=== PATIENT | female | born 1995 | race Two or more races ===

== ENCOUNTER 2024-08-03 11:50 | Emergency (ER) | payer BC, MEDICAID, SELFPAY ==
[2024-08-03 11:58] VITALS: BP 111/71; PULSE 83; RESP 18; TEMP 36.8; O2SAT 98; BMI 33.8
--- NOTE | 2024-08-03 12:04 | XR_ITS ---
Examination: Complete OB ultrasound, less than 14 weeks, transabdominal Date and time of exam: August 03, 2024 1233 hours INDICATIONS: Pelvic pain and vaginal bleeding beginning 2 days ago Technique: Obstetrical ultrasound images less than 14 weeks performed via transabdominal imaging Findings: A normal shaped single intrauterine gestation is present in the uterus. pole 6.1 cm corresponds to 12 weeks 4 days gestational age Cardiac motion 167 BPM Adjacent subchorionic hemorrhage 5.2 x 1.7 x 1.8 cm Ultrasonographic survey of visible structures unremarkable. Amniotic fluid volume appears appropriate for this estimated gestational age. Right ovary 3.3 cm arterial flow Left ovary 3.5 cm arterial flow IMPRESSION: Viable intrauterine gestation 12 weeks 4 days Recommend short-term follow-up transvaginal study given the patient's large subchorionic hemorrhage
--- NOTE | 2024-08-03 12:04 | PD.EDRME ---
Rapid Medical Screening Exam RME Arrival date/time: 08/03/24 11:50 29-year-old female presents emergency department today for complaints of pelvic cramping generalized body aches patient reports being approximate little weeks Chief Complaint: OB/Uterine Contractions Vital signs: Vital Signs Temperature 98.2 F 08/03/24 11:58 Pulse Rate 83 08/03/24 11:58 Respiratory Rate 18 08/03/24 11:58 Blood Pressure 111/71 08/03/24 11:58 Pulse Oximetry (%) 98 08/03/24 11:58 Oxygen Delivery Method Room Air 08/03/24 11:58
[2024-08-03 12:22] LABS: Collection Type, Urine Clean Catch
[2024-08-03 12:34] LABS: Bilirubin,Urine Negative (Negative); Blood,Urine Negative (Negative); Clarity,Urine Clear (Clear/Hazy); Color,Urine Lt-Yellow (Lt Yel-Yel); Glucose, Urine Negative (Negative); Ketones,Urine Negative (Negative); Leukocyte Esterase,Urine Negative (Negative); Nitrite,Urine Negative (Negative); Protein,Urine Negative (Neg - Trace); RBC,Urine 5 /hpf (0-3); Specific Gravity,Urine 1.015 (1.001-1.035); Squamous Epithelial Cell,Urine 1 /hpf (0-5); Urobilinogen,Urine Negative mg/dL (0.0-1.0); WBC,Urine 1 /hpf (0-5)
[2024-08-03 12:49] LABS: Basophils # (Auto) 0.1 Thou/mm3 (0.0-0.2); Basophils % (Auto) 1 % (0-2.5); Eosinophils # (Auto) 0.1 Thou/mm3 (0.0-0.5); Eosinophils % (Auto) 1 % (0-10); Hemoglobin 12.8 g/dL (12.0-16.0); Immature Granulocytes % (Auto) 0 % (0-0); Immature Granulocytes Auto 0.05 Thou/mm3 (0.00-0.00); Lymphocytes # (Auto) 1.6 Thou/mm3 (1.0-4.8); Lymphocytes % (Auto) 12 % (10-50); Mean Corpuscular HGB Conc 34.6 g/dl (31.0-37.0); Mean Corpuscular Hemoglobin 29.6 pg (25.0-35.0); Mean Corpuscular Volume 86 fL (80-100); Monocytes # (Auto) 0.8 Thou/mm3 (0.0-0.8); Monocytes % (Auto) 6 % (0-12); Neutrophils # (Auto) 10.7 Thou/mm3 (1.8-7.7); Neutrophils % (Auto) 81 % (37-80); Nucleated Red Blood Cell % 0 /100 WBC (0); Platelet Count 290 Thou/mm3 (140-440); RDW Standard Deviation 42.6 fL (36.4-46.3); Red Blood Count 4.32 Miln/mm3 (4.00-5.20); White Blood Count 13.2 Thou/mm3 (3.6-11.0)
[2024-08-03 13:23] LABS: Alanine Aminotransferase 9 U/L (10-49); Albumin, Serum 4.2 gm/dL (3.5-5.0); Albumin/Globulin Ratio 1.4 (1.2-2.2); Alkaline Phosphatase 74 U/L (46-116); Anion Gap 8 (7-16); Aspartate Amino Transferase 12 U/L (0-34); BUN/Creatinine Ratio 14 Ratio (12-20); Bilirubin,Total 0.5 mg/dL (0.3-1.2); Blood Urea Nitrogen 7 mg/dL (9-23); Calcium 9.3 mg/dL (8.3-10.6); Calcium (Corrected) 9.3 mg/dL (8.5-10.1); Carbon Dioxide 25.5 mMol/L (20.0-31.0); Chloride 104 mMol/L (98-107); Creatinine (Component) 0.5 mg/dL (0.6-1.3); Estimated Creatinine Clearance 166.8 mL/min (>60); Globulin 3.1 gm/dL (2.3-3.5); Glucose 84 mg/dL (74-106); Osmolality,Calculated 270 (275-295); Potassium 3.6 mMol/L (3.4-5.1); Sodium 137 mMol/L (136-145); Total Protein 7.3 gm/dL (5.7-8.2); eGFR > 60 See Note
[2024-08-03 13:59] LABS: Beta HCG,Quantitative 127086 mIU/mL (<5.0)
[2024-08-03 16:47] VITALS: BP 119/79; PULSE 89; RESP 16; TEMP 36.9; O2SAT 98
--- NOTE | 2024-08-03 16:58 | EDNOTE_ITS ---
ED OB Contraction Preg RMI/HPI General Chief complaint: OB/Uterine Contractions Stated complaint: SPOTTING, CRAMPING, NAUSEA @ 11WKS; GRAV5 PARA2 Arrival date/time: 08/03/24 11:50 RME / HPI RME / HPI Narrative: 08/03/24 11:50 29-year-old female presents emergency department today for complaints of pelvic cramping generalized body aches patient reports being approximate little weeks DR. MADSEN MAIN ED EVALUATION: 29 year old female who is currently 11 weeks gestational age, A2 presents to the ED for evaluation of vaginal spotting and abdominal cramping pain today. States pain is located most across lower abdomen that radiates around to back. Spotting noted to be very light. Additionally complains of nausea, vomiting, and weight loss x 1 month; states 1 month ago she weighed 88kg and yesterday weighed 84kg. States her OBGYN prescribed Zofran which she has yet to take today. States she was last able to tolerate some fluids yesterday. She attempted to drink this am which she did not tolerate. Related Data Previous Rx's ?Medication ?Instructions ?Recorded cyclobenzaprine 10 mg tablet 10 mg PO TID PRN muscle s pasm #20 09/13/21 tabs tramadol 37.5 mg-acetaminophen 325 1 tab PO TID PRN pa in #30 tabs 09/13/21 mg tablet (Ultracet) loperamide 2 mg tablet 2 mg PO Q6H PRN loose stool #14 10/29/22 tabs Allergies Allergy/AdvReac Type Severity Reaction Status Date / Time No Known Allergies Allergy Verified 08/03/24 11:53 Review of Systems Review of Systems Narrative Review of Systems: Constitutional: DENIES; Fevers Eyes: DENIES; Loss of vision Head/Ear/Nose: DENIES; Loss of hearing Throat: DENIES; Dysphagia Cardiovascular: DENIES; Chest pain, dyspnea or syncope Respiratory: DENIES; Shortness of breath Gastrointestinal: SEE HPI +abd cramping, nausea, vomiting. DENIES; Rectal bleeding or melena. Genitourinary: DENIES; Dysuria (painful or difficult urination) Musculoskeletal: DENIES; Arthralgia (pain in a joint),; Skin: DENIES; Rash Neurological: DENIES; Loss of function or movement Psychiatric: DENIES; recent major life stressor, emotional problem, illicit drug use or abuse Allergic/Immunologic: DENIES; Urticaria (hives) Past Medical History Past Medical History NEUROLOGIC: Negative Neurological Disorders or Seizures CARDIAC: Positive Cardiac Disorders and Hypertension; Negative Congestive Heart Failure RESPIRATORY: Negative Chronic Obstructive Pulmonary Disease (COPD) GASTROINTESTINAL: Negative Gastrointestinal Disorders, Hepatitis or Colorectal Cancer GENITOURINARY: Negative Genitourinary Disorders, Renal Disease or Prostate Cancer REPRODUCTIVE: Negative Breast Cancer, Endometriosis, Pelvic Inflammatory Disease, Previous Pregnancies, Testicular Cancer or Uterine Prolapse MUSCULOSKELETAL: Negative Musculoskeletal Disorders or Bone Cancer ENDOCRINE: Negative Endocrine Disorders, Diabetes Mellitus Type 1 or Diabetes Mellitus Type 2 HEMATOLOGIC: Negative Blood Disorders OTHER HISTORY: Positive Hospitalization; Negative Autoimmune Disease, Down Syndrome, Developmental Delay, Shingles, Falls, Blood Transfusions, Blood Transfusion Reaction, Anesthesia Reactions, MRSA, Vancomycin-Resistant Enterococci, Human Immunodeficiency Virus (HIV), Chicken Pox, Measles, Mumps, Rubella ([place] Measles), Pertussis, Clostridium Difficile, Breast Cancer, Cervical Cancer, Colorectal Cancer, Lung Cancer, Ovarian Cancer, Prostate Cancer or Testicular Cancer Family History FAMILY HISTORY: Positive Family Cardiac Disorders; Negative Family Psychiatric Problems, Family Respiratory Disorders, Family Gastrointestinal Problems, Family Cancer, Family Surgery or Family Anesthesia Reaction Surgical History SURGICAL: Positive Section Social History SMOKING STATUS: Never smoker ED Exam Narrative Physical exam: Physical Exam: General: The vital signs were reviewed. The patient is non-toxic, in no apparent distress and appears healthy with a patent airway, no respiratory distress and has no apparent circulatory problems. Head & Scalp: Normocephalic, atraumatic. Face: Appears normal and is without lesions, deformity. Ears: Left external pinna appears normal. Right external pinna appears normal. Eyes: The sclera is anicteric. No obvious photophobia. The Left and Right Orbit/Lid/Conjunctiva appears normal without swelling, discoloration or injection. Nose: The nose is without deformity, discharge or tenderness; Throat: Appears normal. The mucous membranes are pink and moist without exudates, redness or mass seen. The tongue appears normal. Neck: The neck is supple and no apparent mass or adenopathy. Chest: The chest wall is normal in size and symmetry and has no chest wall tenderness or crepitus. The patient displays normal ventilator effort without retractions, accessory muscle use and has adequate air movement bilaterally with no wheezes and no rales. Cardiovascular: Regular rate and rhythm; No murmurs, rubs, or gallops; Gastrointestinal: The abdomen appears normal. No obvious hernias or mass. The abdomen is soft and benign, non-distended, with no pain, no guarding and no rebound tenderness. Bowel sounds are present and normal sounding. No CVA tenderness. Genitourinary: Back/Spine: Extremities/Musculoskeletal/lymphatic: The bilateral upper and lower extremities are warm. There is no evidence of arterial insufficiency. There is no evidence of venous insufficiency/edema. The patient spontaneously moves bilateral upper and lower extremities with no pain and no limitation of movement. There is no apparent, injury or trauma. Skin: The skin is warm, dry and intact. No rashes. No petechia. No purpura. No abnormal bruising. The color is appropriate with no cyanosis. Mental status/Psychiatric: Mental status is appropriate for age. The patient has no apparent delusions, visual hallucinations, no apparent audible hallucinations. The patient has no apparent suicidal thoughts/ideation and no apparent homicidal thoughts/ideation. Neurological: The patient is awake, alert, interactive, cordial, cooperative and is or iented to name and situation. The patient follows commands and answers historical question with no impairment. There is no visual disturbance apparent. The pupils are equal and reactive bilaterally with normal eye movements and no diplopia The bilateral upper and lower extremities have normal strength, normal range of motion and normal functioning. Course Quality Measures none Orders Category Date Time Status Miscellaneous Nursing Order NOW Care 08/03/24 17:04 Active US OB <= 14 weeks fetus Stat Exams 08/03/24 12:04 Completed ABO/RH Type Stat Lab 08/03/24 12:15 Completed Beta HCG,Quantitative Stat Lab 08/03/24 12:15 Completed CBC Stat Lab 08/03/24 12:15 Completed Comprehensive Metabolic Panel Stat Lab 08/03/24 12:15 Completed UA [Urinalysis] Stat Lab 08/03/24 12:05 Completed Urine Culture Stat Lab 08/03/24 12:05 Received Ondansetron Inj [Zofran Inj] Med 08/03/24 17:04 Discontinued 4 mg IV X1 ONE Sodium Chloride 0.9% 1000 ml [Ns] 2,000 ml Med 08/03/24 17:04 Active IV 999 mls/hr Vital Signs Vital signs: Vital Signs Temperature 98.2 F 08/03/24 11:58 Pulse Rate 83 04/23/25 11:58 Respiratory Rate 18 08/03/24 11:58 Blood Pressure 111/71 08/03/24 11:58 Pulse Oximetry (%) 98 08/03/24 11:58 Oxygen Delivery Method Room Air 08/03/24 11:58 Pulse ox is 98% on room air which is adequate. Vaginal Bleeding MDM Narrative MDM Narrative: Patient 29-year-old lady who is SAB 2 comes in with some vaginal spotting and had an ultrasound today which was negative with a live IUP at 12 weeks 5 days but has intractable nausea and vomiting for 4 weeks and has been unable Olding down for the last week states she is lost at least 4 kg of weight in the past month. This morning she vomited and that the last time she tried to drink as she has perpetual nausea. Unfortunate there is no rooms in the ER and she waited in the waiting room for a long time. At this time regular some Zofran will come and give her some IV fluids and oral fluids and see if we can get her comfortable Her lab studies reveal no obvious significant dehydration with a hemoglobin of 12.8 hematocrit 37.0 platelet count of 290,000 electrolytes are normal BUN 7 creatinine 0.5. BUN/creatinine ratio is 14. Urinalysis reveals specific already of 1015 otherwise no infection seen. ultrasound was done as mentioned above Will reevaluate this patient after 2 L of fluid and some Zofran. No doubt patient has hyperemesis gravidarum. She [facility] to the [facility] sees Dr. De Los Santos for her care. At 1800 [address] care goes to Dr. Gibson will be assuming care for hydration and reevaluation. Patient has had intractable nausea and vomiting with 4 kg weight loss in the past month and unable to hold anything down today. Although her labs look reasonable or waiting to see if we clinically get improvement. Patient data External records reviewed:: [facility] previous records (I reviewed ED visit on 01/26/2024 ) Clinical information provided by:: patient Social determinants that could affect healthcare access:: none Patient has the following chronic illnesses:: Currently , 11 weeks gestational age. A2 How is presenting disease/condition affected by chronic disease/condition?: exacerbated by Evaluation data The following diagnostics were reviewed and interpreted by me:: lab results and radiology exam(s) Lab and/or radiology exams considered but not ordered:: None Interpretation Summary: Ordering Physician: Nicholas PULLIAM)Garrett NP Date of Service: 08/03/24 Procedure(s): US OB <= 14 weeks fetus Accession Number(s): [id number] cc: Nicholas PULLIAM)Garrett NP; Roderick Winters MD; NO PRIMARY/FAMILY,PHYSICIAN~ Examination: Complete OB ultrasound, less than 14 weeks, transabdominal Date and time of exam: August 03, 2024 1233 hours INDICATIONS: Pelvic pain and vaginal bleeding beginning 2 days ago Technique: Obstetrical ultrasound images less than 14 weeks performed via transabdominal imaging Findings: A normal shaped single intrauterine gestation is present in the uterus. pole 6.1 cm corresponds to 12 weeks 4 days gestational age Cardiac motion 167 BPM Adjacent subchorionic hemorrhage 5.2 x 1.7 x 1.8 cm Ultrasonographic survey of visible structures unremarkable. Amniotic fluid volume appears appropriate for this estimated gestational age. Right ovary 3.3 cm arterial flow Left ovary 3.5 cm arterial flow IMPRESSION: Viable intrauterine gestation 12 weeks 4 days Recommend short-term follow-up transvaginal study given the patient's large subchorionic hemorrhage Dictated By: Roderick Winters MD Signed By: <Electronically signed by Roderick Winters MD in OV> 08/03/24 1328 Medications / Prescriptions Medications or Prescriptions considered but not ordered:: None Medication administrations:: Medication Administration History Sodium Chloride (Ns) 2,000 mls @ 999 mls/hr IV .Q2H1M ONE Stop: 08/03/24 19:04 Last Admin: 08/03/24 17:20 Dose: 999 mls/hr Documented By: DO Discontinued Medications Ondansetron HCl (Ondansetron Inj 2 Mg/Ml Inj 2 Ml) 4 mg IV X1 ONE; Protocol Stop: 08/03/24 17:05 Last Admin: 08/03/24 17:21 Dose: 4 mg Documented By: DO See above Consultations Consultation(s) initiated? (list below): No Diagnosis Vaginal Bleeding Differential Diagnosis: threatened , vaginal bleeding and other (nausea and vomiting in ) Most likely diagnosis given after review of the tests above:: Hyperemesis gravidarum Acute dehydration Admission Indicated Admission indicated?: not indicated Admission Request Was there a request for admission?: No Disposition Plan Disposition Plan: Discharge Discharge Attestation Discharge Attestation: The patient and all family members were given an opportunity to ask questions and understood the discharge instructions. Discharge instructions specifically effects, indications for sooner follow up or return to the emergency department, and the expected course of current diagnosis. Patient condition: Stable Discharge Plan Prescriptions/Referrals Prescriptions/Med Rec: No Action tramadol-acetaminophen [Ultracet] 37.5-325 mg tablet 1 tab PO TID PRN (Reason: pain) Qty: 30 0RF cyclobenzaprine 10 mg tablet 10 mg PO TID PRN (Reason: muscle spasm) Qty: 20 0RF loperamide 2 mg tablet 2 mg PO Q6H PRN (Reason: loose stool) Qty: 14 0RF Referrals: No Primary/Family,Physician [Primary Care Provider] - In 1 week Problem List Clinical Impression: Hyperemesis gravidarum, Acute dehydration Patient/Caregiver Discharge Instructions Print Language: Mongolian
[2024-08-03] MEDS: SODIUM CHLORIDE 0.9% 1000 ML 2,000 ML 999 ML IV (17:20)
[2024-08-03] MEDS: ONDANSETRON INJ 2 MG/ML INJ 2 ML 4 MG IV (17:21)
--- NOTE | 2024-08-03 18:45 | PD.EDADDENDU ---
Emergency Room Addendum Addendum Narrative: 1800: Care assumed from Dr. Seaman, the previous shift emergency physician. Past medical, surgical, social and family history reviewed. Vitals and home medications reviewed. Results and treatment plan discussed. I will assume the care of the patient at this time and will follow the patient, pending hydration and re-evaluation. Please refer to the emergency department record for history and examination from initial visit. 1855: 29yo female who is ~11 weeks gestation presents to the ED for complaints of abdominal cramping since yesterday and vaginal spotting x today. Patient states she's has persistent N/V for the last one month, reporting she saw her PCP and was given antiemetics that did not alleviate her symptoms. Patient reports associated lightheadedness and generalized weakness. Patient is currently receiving 2L NS IVF and is pending re-evaluation. 1933: IVF completed. I re-evaluated the patient. She states she feels significantly better compared to when she initially came in and is now asymptomatic. Patient was able to tolerate 8 oz fluids here in the ED. Patient is stable to be discharged home.
== END 2024-08-03 20:40 | disposition home or self-care (01) ==
PROVIDERS: Nurse Practitioner Primary Care; Emergency Provider Emergency Medicine
DX: O20.8 Other hemorrhage in early pregnancy (principal); O21.0 Mild hyperemesis gravidarum; O99.281 Endocrine, nutritional and metabolic diseases complicating pregnancy, first trimester; E86.0 Dehydration; Z3A.12 12 weeks gestation of pregnancy
CPT/HCPCS: 36415; 76801; 80053; 81001; 84702; 85025; 86900; 86901; 87086; 96361; 96374; 99284; J2405; J7030

== ENCOUNTER → 2024-10-28 | Outpatient (CLI) | payer MEDICAID, SELFPAY ==
--- NOTE | 2024-10-28 11:30 | XR_ITS ---
Examination: Complete OB ultrasound greater than 14 weeks Date and time of exam: October 28, 2024 1127 hours INDICATIONS: Physician order: Encounter for supervision of normal Findings: Viable intrauterine single fetus with single amniotic sac presentation transverse head right lower quadrant Cardiac motion 166 BPM Placenta fundal posterior grade 1 Umbilical cord insertion seen Adequate amniotic fluid volume Cervix 5.4 cm Right ovary 3.0 cm arterial flow Left ovary 2.7 cm arterial flow. Composite estimated gestational age based on BPD, head circumference, abdominal circumference, femur length is 23 weeks 4 days Estimated weight 609 g. Survey of intracranial anatomy, spinal anatomy, abdominal anatomy, four-chamber heart performed with no abnormalities identified. Impression: Viable intrauterine gestation transverse presentation.
== END | disposition home or self-care (01) ==
LOC: CDIM 11:09
PROVIDERS: Referring Provider Obstetrics & Gynecology; Visit Provider Obstetrics & Gynecology
DX: O32.2XX0 Maternal care for transverse and oblique lie, not applicable or unspecified (principal); Z3A.23 23 weeks gestation of pregnancy
CPT/HCPCS: 76805

== ENCOUNTER 2024-12-06 14:46 | Outpatient (CLI) | payer MEDICAID, SELFPAY ==
[2024-12-06] VITALS (16 sets, daily range): BP systolic 108–115; BP diastolic 56–76; PULSE 64–87; RESP 18–99; TEMP 36.8–37.2; O2SAT 97–100; BMI 36.3; BMI 36.7
--- NOTE | 2024-12-06 15:56 | XR_ITS ---
Examination: Complete OB ultrasound greater than 14 weeks Date and time of exam: December 06, 2024, 1604 hours INDICATIONS: Pelvic pain dizziness and vomiting onset today. Findings: Viable intrauterine single fetus with single amniotic sac presentation breech Cardiac motion 160 BPM Placenta posterior grade 2 Umbilical cord insertion seen Amniotic fluid index 10.4 cm spine maternal left Cervix 4.5 cm. Composite estimated gestational age based on BPD, head circumference, abdominal circumference, femur length is 29 weeks 0 days Estimated weight 1321.6 g. Survey of intracranial anatomy, spinal anatomy, abdominal anatomy, four-chamber heart performed with no abnormalities identified. Impression: Viable intrauterine gestation breech presentation..
[2024-12-06 17:14] LABS: Basophils # (Auto) 0.1 Thou/mm3 (0.0-0.2); Basophils % (Auto) 0 % (0-2.5); Eosinophils # (Auto) 0.1 Thou/mm3 (0.0-0.5); Eosinophils % (Auto) 1 % (0-10); Hematocrit 30.1 % (36.0-46.0); Hemoglobin 9.7 g/dL (12.0-16.0); Immature Granulocytes Auto 0.11 Thou/mm3 (0.00-0.00); Lymphocytes # (Auto) 2.0 Thou/mm3 (1.0-4.8); Lymphocytes % (Auto) 15 % (10-50); Mean Corpuscular HGB Conc 32.2 g/dl (31.0-37.0); Mean Corpuscular Hemoglobin 27.0 pg (25.0-35.0); Mean Corpuscular Volume 84 fL (80-100); Monocytes # (Auto) 1.0 Thou/mm3 (0.0-0.8); Monocytes % (Auto) 7 % (0-12); Neutrophils # (Auto) 10.6 Thou/mm3 (1.8-7.7); Neutrophils % (Auto) 76 % (37-80); Nucleated Red Blood Cell # 0.00 Thou/mm3 (0.00-0.00); Nucleated Red Blood Cell % 0 /100 WBC (0); Platelet Count 284 Thou/mm3 (140-440); RDW Standard Deviation 40.6 fL (36.4-46.3); Red Blood Count 3.59 Miln/mm3 (4.00-5.20); White Blood Count 13.8 Thou/mm3 (3.6-11.0)
[2024-12-06 18:01] LABS: Alanine Aminotransferase < 7 U/L (10-49); Albumin, Serum 3.8 gm/dL (3.5-5.0); Albumin/Globulin Ratio 1.4 (1.2-2.2); Alkaline Phosphatase 88 U/L (46-116); Anion Gap 10 (7-16); Aspartate Amino Transferase 11 U/L (0-34); BUN/Creatinine Ratio 12 Ratio (12-20); Bilirubin,Total 0.4 mg/dL (0.3-1.2); Blood Urea Nitrogen 6 mg/dL (9-23); Calcium 9.2 mg/dL (8.3-10.6); Calcium (Corrected) 9.4 mg/dL (8.5-10.1); Carbon Dioxide 23.7 mMol/L (20.0-31.0); Chloride 105 mMol/L (98-107); Creatinine (Component) 0.5 mg/dL (0.6-1.3); Estimated Creatinine Clearance 173.3 mL/min (>60); Globulin 2.7 gm/dL (2.3-3.5); Glucose 76 mg/dL (74-106); Osmolality,Calculated 274 (275-295); Potassium 3.7 mMol/L (3.4-5.1); Sodium 139 mMol/L (136-145); Total Protein 6.5 gm/dL (5.7-8.2); eGFR > 60 See Note
[2024-12-06] MEDS: SODIUM CHLORIDE 0.9% 1000 ML 1,000 ML 999 ML IV (18:25)
[2024-12-06 18:31] LABS: Beta HCG,Quantitative 43347 mIU/mL (<5.0)
[2024-12-06 19:22] LABS: Collection Type, Urine Voided
[2024-12-06 19:28] LABS: Bacteria,Urine Rare; Bilirubin,Urine Negative (Negative); Blood,Urine Negative (Negative); Color,Urine Yellow (Lt Yel-Yel); Glucose, Urine Negative (Negative); Ketones,Urine Trace (Negative); Leukocyte Esterase,Urine Negative (Negative); Nitrite,Urine Negative (Negative); PH,Urine 7.0 (5.0-7.0); Specific Gravity,Urine 1.021 (1.001-1.035); Urobilinogen,Urine Negative mg/dL (0.0-1.0)
--- NOTE | 2024-12-06 20:00 | EDNOTE_ITS ---
ED OB Contraction Preg RMI/HPI General Chief complaint: Nausea/Vomiting/Diarrhea Stated complaint: N/V, DIZZY, BACK PAIN, PREG 30WKS; SENT BY OB Time Seen by Provider: 12/06/24 15:21 Arrival date/time: 12/06/24 14:46 This is a case of 29-year-old female with no medical history came in in the emergency room due to nausea vomiting since yesterday 4 times today nonprojectile associated with lightheadedness and lower back pain patient is 30 weeks 5 para 2 2 miscarriage LMP is May 11, 2024 patient seen regularly by the OB patient is fine until 2 days prior to arrival in the emergency room patient started the above symptoms patient denies any abdominal pain patient states that she felt that the baby is moving and denies any contraction denies any vaginal bleeding vaginal spotting or vaginal discharge Limitations: no limitations Related Data Previous Rx's ?Medication ?Instructions ?Recorded cyclobenzaprine 10 mg tablet 10 mg PO TID PRN muscle s pasm #20 09/13/21 tabs tramadol 37.5 mg-acetaminophen 325 1 tab PO TID PRN pa in #30 tabs 09/13/21 mg tablet (Ultracet) loperamide 2 mg tablet 2 mg PO Q6H PRN loose stool #14 10/29/22 tabs Allergies Allergy/AdvReac Type Severity Reaction Status Date / Time No Known Allergies Allergy Verified 12/06/24 14:49 Review of Systems Review of Systems Systems Reviewed: All systems reviewed, normal except as documented Constitutional Constitutional: Reports system reviewed and no additional complaints, except as documented, Reports as per HPI, Denies chills and Denies fever(s) Cardiovascular Cardiovascular: Reports system reviewed and no additional complaints, except as documented, Reports as per HPI, Denies chest pain and Denies dyspnea Respiratory Respiratory: Reports system reviewed and no additional complaints, except as documented, Reports as per HPI, Denies chest congestion, Denies cough and Denies dyspnea Gastrointestinal Gastrointestinal: Reports system reviewed and no additional complaints, except as documented, Reports as per HPI, Denies abdominal pain, Denies diarrhea, Denies dyspepsia, Denies hematemesis, Denies melena, Reports nausea and Reports vomiting Genitourinary Genitourinary: Reports system reviewed and no additional complaints, except as d ocumented, Reports as per HPI, Denies abnormal vaginal bleeding and Denies dysuria Neurologic Neurologic: Reports system reviewed and no additional complaints, except as documented and Reports as per HPI Past Medical History Past Medical History NEUROLOGIC: Negative Neurological Disorders or Seizures CARDIAC: Positive Cardiac Disorders and Hypertension; Negative Congestive Heart Failure RESPIRATORY: Negative Chronic Obstructive Pulmonary Disease (COPD) GASTROINTESTINAL: Negative Gastrointestinal Disorders, Hepatitis or Colorectal Cancer GENITOURINARY: Negative Genitourinary Disorders, Renal Disease or Prostate Cancer REPRODUCTIVE: Negative Breast Cancer, Endometriosis, Pelvic Inflammatory D isease, Previous Pregnancies, Testicular Cancer or Uterine Prolapse MUSCULOSKELETAL: Negative Musculoskeletal Disorders or Bone Cancer ENDOCRINE: Negative Endocrine Disorders, Diabetes Mellitus Type 1 or Diabetes Mellitus Type 2 HEMATOLOGIC: Negative Blood Disorders OTHER HISTORY: Positive Hospitalization; Negative Autoimmune Disease, Down Syndrome, Developmental Delay, Shingles, Falls, Blood Transfusions, Blood Transfusion Reaction, Anesthesia Reactions, MRSA, Vancomycin-Resistant Enterococci, Human Immunodeficiency Virus (HIV), Chicken Pox, Measles, Mumps, Rubella (Setswana Measles), Pertussis, Clostridium Difficile, Breast Cancer, Cervical Cancer, Colorectal Cancer, Lung Cancer, Ovarian Cancer, Prostate Cancer or Testicular Cancer Family History FAMILY HISTORY: Positive Family Cardiac Disorders; Negative Family Psychiatric Problems, Family Respiratory Disorders, Family Gastrointestinal Problems, Family Cancer, Family Surgery or Family Anesthesia Reaction Surgical History SURGICAL: Positive Section Social History SMOKING STATUS: Never smoker ED Exam General Limitations: Present no limitations General appearance: Present alert, in no apparent distress and other (Patient is awake alert oriented not in distress nontoxic looking well-hydrated well- nourished) Head Head exam: Present atraumatic, normocephalic and normal inspection Eye Eye exam: Present normal appearance, PERRL and EOMI ENT ENT exam: Present normal exam, normal oropharynx and mucous membranes moist Neck Neck exam: Present normal inspection, full ROM and trachea midline Chest Chest inspection: Present normal inspection and symmetric chest wall rise; Absent tenderness Respiratory Respiratory exam: Present normal lung sounds bilaterally; Absent respiratory distress, wheezes, stridor, accessory muscle use or prolonged expiratory phase Cardiovascular Cardiovascular exam: Present regular rate, normal rhythm and normal heart sounds; Absent bradycardia, tachycardia, irregular rhythm, systolic murmur or diastolic murmur Abdominal Exam Abdominal exam: Present soft, normal bowel sounds and other (Gravid uterus soft normal active bowel); Absent tenderness, guarding, rebound, rigidity, diminished bowel sounds, hyperactive bowel sounds, hypoactive bowel sounds or organomegaly Extremities Exam Extremities exam: Present normal inspection and full ROM Back Exam Back exam: Present normal inspection and full ROM; Absent tenderness, CVA tenderness (R), CVA tenderness (L), muscle spasm, paraspinal tenderness, vertebral tenderness, rashes, sciatic notch tenderness (R), sciatic notch tenderness (L), straight leg raise (R) or straight leg raise (L) Neurological Exam Neurological exam: Present alert, oriented X3, CN II-XII intact, normal gait and reflexes normal; Absent motor sensory deficit Psychiatric Psychiatric exam: Present normal affect and normal mood Skin Skin exam: Present warm, dry, intact, normal color and other (Excellent skin turgor) Course Quality Measures none Orders Category Date Time Status US OB >= 14 weeks Fetus Stat Exams 12/06/24 15:56 Completed ABO/RH Type Stat Lab 12/06/24 16:42 Completed Beta HCG,Quantitative Stat Lab 12/06/24 16:42 Completed CBC Stat Lab 12/06/24 16:42 Completed CMP [Comprehensive Metabolic Panel] Stat Lab 12/06/24 16:42 Completed Urinalysis Stat Lab 12/06/24 19:05 Completed Ondansetron Inj [Zofran Inj] Med 12/06/24 15:56 Discontinued 4 mg IVP X1 ONE Sodium Chloride 0.9% 1000 ml [Ns] 1,000 ml Med 12/06/24 15:57 Discontinued IV 999 mls/hr Vital Signs Vital signs: Vital Signs Temperature 98.2 F 12/06/24 15:21 Pulse Rate 87 12/06/24 15:21 Respiratory Rate 20 12/06/24 15:21 Blood Pressure 115/76 12/06/24 15:21 Pulse Oximetry (%) 97 12/06/24 15:21 Oxygen Delivery Method Room Air 12/06/24 15:21 Patient is afebrile not tachycardic not tachypneic not hypoxic BP stable oxygen saturation is 97% in room air OB/Uterine Contractions MDM Narrative MDM Narrative:: This is a case of 29-year-old female with no medical history came in in the emergency room due to nausea vomiting since yesterday 4 times today nonprojectile associated with lightheadedness and lower back pain patient is 30 weeks 5 para 2 2 miscarriage LMP is May 11, 2024 patient seen regularly by the OB patient is fine until 2 days prior to arrival in the emergency room patient started the above symptoms patient denies any abdominal pain patient states that she felt that the baby is moving and denies any contraction denies any vaginal bleeding vaginal spotting or vaginal discharge physical examination patient is awake alert oriented not in distress nontoxic looking well-hydrated well-nourished excellent skin turgor abdominal exam is benign nonsurgical gravid uterus soft normal active bowel sounds no guarding no rebound no rigidity the rest of the physical examination and neurological exam is normal and unremarkable blood test showed leukocytosis at 13.7 possibly due to dehydration anemia of 9.7 patient is taking multivitamin platelet is normal no electrolyte imbalance kidney and liver function is normal urinalysis is normal patient beta-hCG [id number] patient pelvic ultrasound showed 29 weeks with heart tones of 160 patient was given a bolus of normal saline and Zofran which patient condition markedly improved patient pain resolved no recurrence of vomiting abdominal exam is benign nonsurgical no guarding no rebound no rigidity normal active bowel sounds at this point patient is cleared here in the emergency room patient will go to OB principal software architect for NST exam patient was advised to follow-up with PCP in 2 days for reevaluation and to see OB principal software architect tomorrow for reevaluation and checkup she will also notify for any worsening symptoms or any emergent concern or recurrent symptoms return to the emergency room immediately or call 911 Patient was discharged with comfortable condition walking with stable gait. Patient verbalized no further complains explained diagnosis and answered patient question. Patient is comfortable with the proposed management plan including the need to follow up with his/her primary care physician and any specialist if applicable Discussed patient for any urgent condition or worsening sx, He/She needed to go to emergency room immediately or call 911. Patient acknowledge the responsibility to follow up as instructed and to monitor her/his symptoms. For any persistence of the symptoms for more than 3-5 days return precaution advised. Discussed the result of the test and was given printed discharge instruction Patient data External records reviewed:: [facility] previous records Clinical information provided by:: patient Social determinants that could affect healthcare access:: none Patient has the following chronic illnesses:: Reviewed How is presenting disease/condition affected by chronic disease/condition?: no chronic disease Evaluation data The following diagnostics were reviewed and interpreted by me:: lab results and radiology exam(s) Lab and/or radiology exams considered but not ordered:: Reviewed Interpretation Summary: Reviewed Medications / Prescriptions Medications or Prescriptions considered but not ordered:: Given Medication administrations:: Medication Administration History Discontinued Medications Sodium Chloride (Ns) 1,000 mls @ 999 mls/hr IV .Q1H1M ONE Stop: 12/06/24 16:57 Last Infusion: 12/06/24 20:05 Dose: Infused Documented By: Admin: 12/06/24 18:25 Dose: 999 mls/hr Documented By: JAVIER Ondansetron HCl (Ondansetron Inj 2 Mg/Ml Inj 2 Ml) 4 mg IVP X1 ONE; Protocol Stop: 12/06/24 15:57 Last Admin: 12/06/24 20:21 Dose: 4 mg Documented By: CHAU Given Consultations Consultation(s) initiated? (list below): No Diagnosis OB Contractions Differential Diagnosis: other (Urinary tract infection premature labor gastroenteritis) Most likely diagnosis given after review of the tests above:: Vomiting in Admission Indicated Admission indicated?: not indicated Explain why admission is indicated or not indicated:: Not indicated Admission Request Was there a request for admission?: No Admission Attestation Admission request attestation: Not indicated Disposition Plan Disposition Plan: Discharge Discharge Attestation Discharge Attestation: The patient and all family members were given an opportunity to ask questions and understood the discharge instructions. Discharge instructions specifically effects, indications for sooner follow up or return to the emergency department, and the expected course of current diagnosis. Patient condition: Stable Discharge Plan Plan Patient Disposition: HOME (Self Care) Patient condition on transfer: Stable Prescriptions/Referrals Prescriptions/Med Rec: No Action tramadol-acetaminophen [Ultracet] 37.5-325 mg tablet 1 tab PO TID PRN (Reason: pain) Qty: 30 0RF cyclobenzaprine 10 mg tablet 10 mg PO TID PRN (Reason: muscle spasm) Qty: 20 0RF loperamide 2 mg tablet 2 mg PO Q6H PRN (Reason: loose stool) Qty: 14 0RF Referrals: No Primary/Family,Physician [Primary Care Provider] - In 1 week Problem List Clinical Impression: Vomiting during , Lower back pain, Third trimester Patient/Caregiver Discharge Instructions Education Materials: Preg 3rd Trimester, ED Back Pain (Acute or Chronic), ED Vomiting (Adult) Additional Instructions: Follow-up with your primary care physician in 2 days for reevaluation it is very important to see your OB principal software architect tomorrow for reevaluation and check worsening symptoms or any emergent concern call 911 or go to the nearest emergency room take your medication as directed continue your multivitamins continue to monitor movement or any vaginal bleeding abdominal pain fever chills etc. return to the emergency room immediately or call 911 Pedialyte for every bouts of vomiting Print Language: Pakistani Stand Alone Forms: Janice Award Info., Patient Portal Info Letter PA/PAWLE Supervising Physician PA/CLOSET BUILDER Supervising Physician: doctor simental
[2024-12-06] MEDS: ONDANSETRON INJ 2 MG/ML INJ 2 ML 4 MG IVP (20:21)
[2024-12-06 20:29] LABS: Amorphous Crystals,Urine Present (Absent); Clarity,Urine Clear (Clear/Hazy); Protein,Urine Negative (Neg - Trace); RBC,Urine 1 /hpf (0-3); Squamous Epithelial Cell,Urine 2 /hpf (0-5); WBC,Urine 1 /hpf (0-5)
== END 2024-12-06 22:17 | disposition home or self-care (01) ==
LOC: SERX 20:33 → CNST 20:56 → S4SX 20:57
PROVIDERS: Nurse Practitioner Family; Referring Provider Obstetrics & Gynecology; Visit Provider Obstetrics & Gynecology
DX: O21.2 Late vomiting of pregnancy (principal); O26.893 Other specified pregnancy related conditions, third trimester; M54.50 Low back pain, unspecified; Z3A.30 30 weeks gestation of pregnancy
CPT/HCPCS: 36415; 59025; 76805; 80053; 81001; 84702; 85025; 86900; 86901; 96361; 96374; 99284; J2405; J7030

== ENCOUNTER 2024-12-28 09:46 | Outpatient (AMB) | payer MEDICAID, SELFPAY ==
[2024-12-28 09:53] VITALS: BP 115/72; PULSE 107; RESP 16; TEMP 36.2; O2SAT 98; BMI 37.4
--- NOTE | 2024-12-28 09:53 | OBCLNT_ITS ---
Vital Signs 12/28/24 09:53 Height 1.57 m Height Method Stated Weight 92.249 kg Weight Measurement Method Standing Scale BMI 37.4 BP 115/72 Blood Pressure Source Automatic Cuff Blood Pressure Location Left Upper Arm Position Sitting Respiration 16 Pulse 107 H Pulse Source Monitor Temp 97.2 F Temp Source Oral Pulse Oximetry (%) 98 Oxygen Delivery Method Room Air Allergies/Home Meds Allergies & Medications Allergies No Known Allergies Allergy (Verified 12/28/24 09:54) Medication Reconciliation No Known Home Medications 12/28/24 [History Confirmed 12/28/24] Intake Visit Data Collection New Patient or Established: Established Patient (seen at [facility] within 3 years) Reason for Visit:: OBC Seen by Clinical Staff ONLY (RN/MA): No Project Management Analyst Required: No Do You Feel Safe at Home: Yes Authorities Contacted: N/A PCP or OBGYN visit in last 3 months: Yes Date of Last PCP or OBGYN visit: 12/06/24 Hx Now: Yes Are you currently on any form of Control: No Last menstrual period: 05/09/24 Pain Present Currently: No Pain Scale Used: Cee-Colón/Numerical Pain scale:: 0 Smoking Status Smoking Status: Never smoker Questionnaires Covid-19 Vaccine Questionnaire Has patient been vacinated for Covid-19 Have you been vacinated for Covid-19: Yes PHQ-9 PHQ-2 Over the last 2 weeks, how often have you been bothered by any of the following problems? 1. Little interest or pleasure in doing things: not at all 2. Feeling down, depressed, or hopeless: not at all Total score: 0 PHQ-9 3. Trouble falling or staying asleep, or sleeping too much: Not at all 4. Feeling tired or having little energy: Not at all 5. Poor appetite or overeating: Not at all 6. Feeling bad about yourself - or that you are a failure or have let yourself or your family down: Not at all 7. Trouble concentrating on things, such as reading the newspaper or watching television: Not at all 8. Moving or speaking so slowly that other people could have noticed? - Or the opposite - being so fidgety or restless that you have been moving around a lot more than usual: not at all 9. Thoughts that you would be better off or of hurting yourself in some way: Not at all Total score: 0 If you checked off any problems, how difficult have these problems made it for you to do your work, take care of things at home, or get along with other people?: not difficult at all Source: Developed by Drs. Ambrose Gotti, Lissett Saldana, Peewee calhoun nd colleagues, with an educational michaela from [employer]. Depression screen completed yes Social History Living Situation History Marital Status: Lives With: Family Housing: House Housing Other:: Off work on disability due to back pain. 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 at Home: Yes History of Present Illness HPI Narrative The patient is a 29-year-old -0-2-2 who presents as a transfer of care from Dr. [facility] at 33 weeks for history of x 2. 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 Patient did not make it past 3 cm 2017. Elective repeat 01/29 hip mass removal probable lipoma Other Relevant History: History of miscarriage x 2 Denies any chronic medical problems besides anemia. No hypertension diabetes or asthma. OB Initial Visit Menstrual History Menstrual reliability: definite Flow: normal Menstrual regularity: regular Monthly: Yes Age at menarche: 12 On control pills at conception: No OB History : 5 Para: 2 Hx # Pregnancies: 0 Hx Total # of Abortions (Spontaneous & Elective): 2 # of Living Children: 2 Delivery History 1st : Child's name: NOT PROVIDED date: 11/09/13 sex: male Delivery type: weight (lbs): 3628.739 g History of depression before or after : No 2nd : Child's name: NOT PROVIDED date: 10/23/17 sex: female Delivery type: weight (lbs): 2721.554 g History of depression before or after : No Infection History & Risk Evaluation History of STDs: none HIV risk evaluation: low risk Hepatitis B risk evaluation: low risk Patient or partner has history of Genital Herpes: No Varicella/chicken pox status: immunized Genetic Screening & History Genetic Screening/Teratology Counseling - Includes patient, baby's father, or anyone in either family with: 1. Patient's age 35 years or older as of estimated date of delivery: No 2. Thalassemia (Citizen Of [place], Croatian, Mediterranean, or Background); MCV less than 80: No 3. Neural Tube Defect (Meningomyelocele, Spina Bifida, or Anencephaly): No 4. Congenital Heart Defect: No 5. Down Syndrome: No 6. Mack-Sachs (Ashkenazi Scientologist, Cajun, Cook Islander Croatian): No 7. Tika Disease (Ashkenazi Scientologist): No 8. Familial Dysautonomia (Ashkenazi Scientologist): No 9. Sickle Cell Disease or Trait (): No 10. Hemophilia or other blood disorders: No 11. Muscular Dystrophy: No 12. Cystic Fibrosis: No 13. Ponce's Chorea: No 14. Mental Retardation/Autism: No 15. Other inherited genetic or chromosomal disorder: No 16. Maternal Metabolic Disorder (EG,TYPE 1 Diabetes, PKU): No 17. Patient or baby's father had a child with defects not listed above: No 18. Recurrent loss or a stillbirth: No 19. Medications (including supplements, vitamins, herbs or otc drugs)/illicit/recreational drugs/alcohol since last menstrual period: No 20. Any other: No Infection History 1. Live with someone with TB or exposed to TB: No 2. Rash or viral illness since last menstrual period: No 3. Hepatitis B,C: No Other (see comments) Source: [employer] Review of Systems Review of Systems Narrative Review of Systems: Patient has back pain and has been off work. No bleeding contractions or loss of fluids. Systems Reviewed: All systems reviewed, normal except as documented Exam Narrative Physical exam: Fundus 33 cm General Limitations: no limitations General Appearance: alert, in no apparent distress, comfortable, cooperative, healthy appearing and well groomed Chest Chest inspection: Present normal inspection and symmetric chest wall rise Resp Respiratory exam: Present normal lung sounds bilaterally Card Cardiovascular exam: Present regular rate, normal rhythm and normal heart sounds Abdominal Abdominal exam: Present soft and normal bowel sounds Psych Psychiatric exam: Present normal affect and normal mood Skin Skin exam: Present warm, dry, intact and normal color Results Objective Laboratory: labs reviewed A+/antibody screen negative/rubella immune/RPR n onreactive/hepatitis B surface antigen negative/GC negative/chlamydia negative/AFP negative/cystic fibrosis -1-hour glucose 98//HIV nonreactive/hemoglobin 10.4/repeat syphilis testing third trimester negative/ultrasound - 10/28/2024 at 23 weeks Assessment & Plan Diagnosis / Problem List (1) Lower back pain: Status: Acute Qualifiers: Chronicity: unspecified Back pain laterality: unspecified Sciatica presence: unspecified whether sciatica present Qualified Code(s): M54.50 - Low back pain, unspecified Plan: Patient already off work on disability (2) : Status: Acute Qualifiers: Weeks of gestation: 33 weeks Qualified Code(s): Z3A.33 - 33 weeks gestation of Plan: All labs and records reviewed. Scheduled for repeat at 39 weeks. (3) Previous delivery affecting : Status: Acute
== END 2024-12-28 10:36 | disposition home or self-care (01) ==
LOC: HODSOBC 09:46
PROVIDERS: Supervising Provider Obstetrics & Gynecology; Visit Provider Obstetrics & Gynecology
DX: O09.293 Supervision of pregnancy with other poor reproductive or obstetric history, third trimester (principal); O34.219 Maternal care for unspecified type scar from previous cesarean delivery; O09.893 Supervision of other high risk pregnancies, third trimester; O99.891 Other specified diseases and conditions complicating pregnancy; M54.50 Low back pain, unspecified; Z3A.33 33 weeks gestation of pregnancy
CPT/HCPCS: 99213; G0463

== ENCOUNTER 2025-01-11 09:21 | Outpatient (AMB) | payer MEDICAID, SELFPAY ==
[2025-01-11 09:31] VITALS: BP 114/71; PULSE 84; RESP 16; TEMP 36.2; O2SAT 98; BMI 38.2
--- NOTE | 2025-01-11 09:31 | OBCLNT_ITS ---
Vital Signs 01/11/25 09:31 Height 1.57 m Height Method Stated Weight 94.347 kg Weight Measurement Method Standing Scale BMI 38.2 BP 114/71 Blood Pressure Source Automatic Cuff Blood Pressure Location Left Upper Arm Position Sitting Respiration 16 Pulse 84 Pulse Source Monitor Temp 97.2 F Temp Source Oral Pulse Oximetry (%) 98 Oxygen Delivery Method Room Air Allergies/Home Meds Allergies & Medications Allergies No Known Allergies Allergy (Verified 01/11/25 09:32) Medication Reconciliation No Known Home Medications 12/28/24 [History Confirmed 01/11/25] Intake Visit Data Collection New Patient or Established: Established Patient (seen at [facility] within 3 years) Reason for Visit:: OBC Seen by Clinical Staff ONLY (RN/MA): No Utility Tender Carding Required: No Do You Feel Safe at Home: Yes Authorities Contacted: N/A PCP or OBGYN visit in last 3 months: Yes Date of Last PCP or OBGYN visit: 12/28/24 Hx Now: Yes Are you currently on any form of Control: No Pain Present Currently: No Pain Scale Used: Cee-Colón/Numerical Pain scale:: 0 Smoking Status Smoking Status: Never smoker Questionnaires Covid-19 Vaccine Questionnaire Has patient been vacinated for Covid-19 Have you been vacinated for Covid-19: No PHQ-9 PHQ-2 Over the last 2 weeks, how often have you been bothered by any of the following problems? 1. Little interest or pleasure in doing things: not at all 2. Feeling down, depressed, or hopeless: not at all Total score: 0 PHQ-9 3. Trouble falling or staying asleep, or sleeping too much: Not at all 4. Feeling tired or having little energy: Not at all 5. Poor appetite or overeating: Not at all 6. Feeling bad about yourself - or that you are a failure or have let yourself or your family down: Not at all 7. Trouble concentrating on things, such as reading the newspaper or watching television: Not at all 8. Moving or speaking so slowly that other people could have noticed? - Or the opposite - being so fidgety or restless that you have been moving around a lot more than usual: not at all 9. Thoughts that you would be better off or of hurting yourself in some way: Not at all Total score: 0 If you checked off any problems, how difficult have these problems made it for you to do your work, take care of things at home, or get along with other people?: not difficult at all Source: Developed by Drs. Ambrose Gotti, Lissett Saldana, Peewee Montejo and colleagues, with an educational michaela from [employer]. Depression screen completed yes Social History Living Situation History Lives With: Family Housing: House Housing Other:: Off work on disability due to back pain. 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 Tellez. Good movement no contractions no loss of fluids. EDC 02/13/2025. Sign tubal ligation papers. For repeat at 39 weeks. MARY Calculator Estimated Delivery Date Method Current WG Current Estimate 02/21/25 Ultrasound #1 34w 4d Other Estimates 02/13/25 LMP (Certain) 35w 5d Expected Delivery Route/Plan care labs up-to-date in the chart from Dr. Tellez: Transfer of care at approximately 32 weeks: A positive/antibody screen negative /rubella immune/RPR nonreactive/GC negative /Chlamydia negative /hepatitis B surface antigen negat tien/HIV negative/ NIPT normal 46 XX/cystic fibrosis-/ and AFP negative/1-hour glucose 98./ Specific Issue/Plans 29-year-old -0-2-2 History of x 2 For elective repeat Desires tubal ligation. Signed papers in the office 01/11/2025 Office Procedures OBC Clinic LOC & Office Proc's Nursing/Assessment Patient Status: Established Patient OB Clinic Nursing Assessment: Medication Reconciliation, Update PMH in EMR and Vital Signs OB Clinic Coordination of Care: Education Complex Pt/Fam, Consent,records obtained, informed consent, Lab and Imaging orders, Results/Orders obtained and Staff clarify orders Special Needs: Heart tones Established Patient Charge Established Patient Point Assignment: 115 Established Patient Point Charge: EP Level 3 (80-115) Assessment & Plan Diagnosis / Problem List (1) Previous delivery affecting : Status: Acute Plan: The patient has been scheduled for repeat with tubal ligation 1 at 7:30 in the morning. (2) : Status: Acute Qualifiers: Weeks of gestation: 33 weeks Qualified Code(s): Z3A.33 - 33 weeks gestation of Additional Plan Follow Up: 2 Weeks
== END 2025-01-11 10:09 | disposition home or self-care (01) ==
LOC: HODSOBC 09:21
PROVIDERS: Supervising Provider Obstetrics & Gynecology; Visit Provider Obstetrics & Gynecology
DX: O09.293 Supervision of pregnancy with other poor reproductive or obstetric history, third trimester (principal); O34.219 Maternal care for unspecified type scar from previous cesarean delivery; Z3A.34 34 weeks gestation of pregnancy
CPT/HCPCS: 99213; G0463

== ENCOUNTER 2025-01-18 15:29 | Outpatient (AMB) | payer MEDICAID, SELFPAY ==
--- NOTE | 2025-01-18 15:40 | AMB.OBVISIT ---
Vital Signs 01/18/25 15:45 Height 1.57 m Height Method Stated Weight 95.424 kg Weight Measurement Method Standing Scale BMI 38.7 BP 116/76 Blood Pressure Source Automatic Cuff Blood Pressure Location Left Upper Arm Position Sitting Respiration 16 Pulse 98 Pulse Source Monitor Temp 97.2 F Temp Source Oral Pulse Oximetry (%) 98 Oxygen Delivery Method Room Air Allergies/Home Meds Allergies & Medications Allergies No Known Allergies Allergy (Verified 01/18/25 17:22) Intake Visit Data Collection New Patient or Established: Established Patient (seen at [facility] within 3 years) Reason for Visit:: OBC Seen by Clinical Staff ONLY (RN/MA): No Federal Mediation Commissioner Required: No Do You Feel Safe at Home: Yes Authorities Contacted: N/A PCP or OBGYN visit in last 3 months: Yes Date of Last PCP or OBGYN visit: 12/28/24 Hx Now: Yes Are you currently on any form of Control: No Pain Present Currently: No Pain Scale Used: Cee-Colón/Numerical Pain scale:: 0 Smoking Status Smoking Status: Never smoker Questionnaires Covid-19 Vaccine Questionnaire Has patient been vacinated for Covid-19 Have you been vacinated for Covid-19: Yes PHQ-9 PHQ-2 Over the last 2 weeks, how often have you been bothered by any of the following problems? 1. Little interest or pleasure in doing things: not at all 2. Feeling down, depressed, or hopeless: not at all Total score: 0 PHQ-9 3. Trouble falling or staying asleep, or sleeping too much: Not at all 4. Feeling tired or having little energy: Not at all 5. Poor appetite or overeating: Not at all 6. Feeling bad about yourself - or that you are a failure or have let yourself or your family down: Not at all 7. Trouble concentrating on things, such as reading the newspaper or watching television: Not at all 8. Moving or speaking so slowly that other people could have noticed? - Or the opposite - being so fidgety or restless that you have been moving around a lot more than usual: not at all 9. Thoughts that you would be better off or of hurting yourself in some way: Not at all Total score: 0 If you checked off any problems, how difficult have these problems made it for you to do your work, take care of things at home, or get along with other people?: not difficult at all Source: Developed by Drs. Ambrose Gotti, Lissett Saldana, Peewee Montejo and colleagues, with an educational michaela from [employer]. Depression screen completed yes Social History Living Situation History Marital Status: Single Lives With: Family Housing: House Housing Other:: Off work on disability due to back pain. 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 Tellez. Good movement no contractions no loss of fluids. EDC 02/13/2025. Sign tubal ligation papers. For repeat at 39 weeks. MARY Calculator Estimated Delivery Date Method Current WG Current Estimate 02/21/25 Ultrasound #1 35w 1d Other Estimates 02/13/25 LMP (Certain) 36w 2d Expected Delivery Route/Plan care labs up-to-date in the chart from Dr. Tellez: Transfer of care at approximately 32 weeks: A positive/antibody screen negative /rubella immune/RPR nonreactive/GC negative /Chlamydia negative /hepatitis B surface antigen negative/HIV negative/ NIPT normal 46 XX/cystic fibrosis-/ and AFP negative/1-hour glucose 98./ Specific Issue/Plans 29-year-old -0-2-2 History of x 2 For elective repeat Desires tubal ligation. Signed papers in the office 01/11/2025 Office Procedures OBC Clinic LOC & Office Proc's Nursing/Assessment Patient Status: Established Patient OB Clinic Nursing Assessment: Medication Reconciliation, Update PMH in EMR and Vital Signs OB Clinic Coordination of Care: Education Complex Pt/Fam, Lab and Imaging orders, Results/Orders obtained and Staff clarify orders Special Needs: Heart tones Established Patient Charge Established Patient Point Assignment: 110 Established Patient Point Charge: EP Level 3 (80-115) Assessment & Plan Diagnosis / Problem List (1) Previous delivery affecting : Status: Acute Plan: repeat scheduled 02/06/2025 with tubal ligation. (2) : Status: Acute Qualifiers: Weeks of gestation: 33 weeks Qualified Code(s): Z3A.33 - 33 weeks gestation of
[2025-01-18 15:45] VITALS: BP 116/76; PULSE 98; RESP 16; TEMP 36.2; O2SAT 98; BMI 38.7
== END 2025-01-18 15:34 | disposition home or self-care (01) ==
LOC: HODSOBC 15:30
PROVIDERS: Supervising Provider Obstetrics & Gynecology; Visit Provider Obstetrics & Gynecology
DX: O09.293 Supervision of pregnancy with other poor reproductive or obstetric history, third trimester (principal); O34.219 Maternal care for unspecified type scar from previous cesarean delivery; Z3A.34 34 weeks gestation of pregnancy
CPT/HCPCS: 99213; G0463

== ENCOUNTER 2025-01-18 16:58 | Outpatient (CLI) | payer MEDICAID, SELFPAY ==
[2025-01-18 17:06] VITALS: BP 116/72; PULSE 73; PULSE 74; PULSE 77; RESP 18; RESP 99; TEMP 36.6; O2SAT 99
[2025-01-18 17:11] VITALS: PULSE 91; O2SAT 98
[2025-01-18 17:13] VITALS: BMI 38.4
[2025-01-18 17:16] VITALS: PULSE 76; O2SAT 98
[2025-01-18 17:21] VITALS: PULSE 85; O2SAT 97
[2025-01-18 17:26] VITALS: PULSE 73; O2SAT 98
== END 2025-01-18 17:35 | disposition home or self-care (01) ==
LOC: CNST 16:59 → S4SX 17:00
PROVIDERS: Referring Provider Obstetrics & Gynecology; Visit Provider Obstetrics & Gynecology
DX: O36.8130 Decreased fetal movements, third trimester, not applicable or unspecified (principal); Z3A.36 36 weeks gestation of pregnancy
CPT/HCPCS: 59025

== ENCOUNTER 2025-01-23 19:31 | Observation (INO) | payer MEDICAID, SELFPAY ==
[2025-01-23] VITALS (67 sets, daily range): BP systolic 92–131; BP diastolic 51–78; PULSE 65–103; RESP 18–100; TEMP 36.9; O2SAT 96–100; BMI 38.7
--- NOTE | 2025-01-23 19:57 | ESPR_ITS ---
Documentation for date of: 01/23/25 OB Labor Progress Note Pelvic Exam Amniotic membrane status: Intact Assessment and Plan Comments: Triage Note after fall Tiffany is a 29yo with SIUP at 37&0wk presenting to L&D after a fall onto her left side. She was walking on stairs and missed a step. Did not hit her abdomen. She is having back pain but no abdominal pain. A bit of nausea, no vomiting. She notes no painful/regular ctx, no vaginal bleeding, no loss of fluid. Normal movement. PMhx/PNC significant for: -History of section x2. Has RLTCS with BTL scheduled. -Current BMI 38.7 - Care with Dr. Mita ZAMUDIO negative other than what was described above. Vitals wnl, afebrile General: well developed, well nourished, no acute distress, conversant Cardiac: normal heart rate Lungs: breathing without distress Abdomen: soft, gravid, non-tender, no rebound or guarding Extremities: no edema BLE No vaginal bleeding Prolonged monitoring: Cat 1 FHRT with +accels, no decels, mod johanne [place]: no ctx pattern Radiology: ultrasound: Examination: Complete OB ultrasound greater than 14 weeks Date and time of exam: January 23, 2025, 0822 hours INDICATIONS: Patient fell today with pelvic and back pain Findings: Viable intrauterine single fetus with single amniotic sac presentation cephalic Cardiac motion 164 bpm Placenta posterior grade 2 Medical cord insertion and three-vessel Amniotic fluid index 8.8 cm The spine anterior Cervix 3.8 cm Ovaries obscured by bowel gas. Composite estimated gestational age based on BPD, head circumference, abdominal circumference, femur length is 36 weeks 3 days Estimated weight 2862 g. Survey of intracranial anatomy, spinal anatomy, abdominal anatomy, four-chamber heart performed with no abnormalities identified. Impression: Viable intrauterine gestation in cephalic presentation. Labs: A positive MBT Assessment: Tiffany is a 29yo with SIUP at 37&0wk with no evidence of placental abruption s/p fall. Normal prolonged monitoring >6hr from fall. Vitals wnl, benign exam. IM demerol and phenergan given in triage for back pain/nausea and patient had good relief. Plan: -Discussed reassuring findings with patient -Rx flexeril 5mg PO Q8hr prn (5 tabs) for back spasm -Follow up this week as scheduled -Discussed return precautions at length for vaginal bleeding, loss of fluid, contractions, worsening discomfort, decreased movement. Nataliia Feng MD
[2025-01-23] MEDS: MEPERIDINE INJ 50 MG/ML VIAL IM (20:55)
[2025-01-23] MEDS: PROMETHAZINE INJ 25 MG/ML VIAL 12.5 MG IM (21:08)
[2025-01-24 00:09] VITALS: BP 112/56; PULSE 73
== END 2025-01-24 00:52 | disposition home or self-care (01) ==
PROVIDERS: Admitting Provider Obstetrics & Gynecology; Visit Provider Obstetrics & Gynecology
DX: O9A.213 Injury, poisoning and certain other consequences of external causes complicating pregnancy, third trimester (principal); S29.9XXA Unspecified injury of thorax, initial encounter; W19.XXXA Unspecified fall, initial encounter; Y93.01 Activity, walking, marching and hiking; Z3A.37 37 weeks gestation of pregnancy
CPT/HCPCS: 59025; 59899; 76805; 96372; J2175; J2550

== ENCOUNTER 2025-01-27 08:04 | Outpatient (AMB) | payer MEDICAID, SELFPAY ==
[2025-01-27 08:23] VITALS: BP 112/66; PULSE 77; RESP 14; TEMP 36.3; O2SAT 98; BMI 38.0
--- NOTE | 2025-01-27 08:23 | OBCLNT_ITS ---
Vital Signs 01/27/25 08:23 Height 1.57 m Height Method Stated Weight 94.461 kg Weight Measurement Method Standing Scale BMI 38.0 BP 112/66 Blood Pressure Source Automatic Cuff Blood Pressure Location Left Upper Arm Position Sitting Respiration 14 Pulse 77 Pulse Source Monitor Temp 97.4 F Temp Source Oral Pulse Oximetry (%) 98 Oxygen Delivery Method Room Air Allergies/Home Meds Allergies & Medications Allergies No Known Allergies Allergy (Verified 01/27/25 08:25) Medication Reconciliation vitamins no.102-iron 90 mg-folate 1 mg-dha 200 mg capsule 1 cap PO QDAY 01/18/25 [History Confirmed 01/27/25] cyclobenzaprine 5 mg tablet 5 mg PO Q8H PRN back pain #5 tabs 01/23/25 [Rx Confirmed 01/27/25] Intake Visit Data Collection New Patient or Established: Established Patient (seen at [facility] within 3 years) Reason for Visit:: CARE Seen by Clinical Staff ONLY (RN/MA): No Slope Runner Required: No Do You Feel Safe at Home: Yes Authorities Contacted: N/A PCP or OBGYN visit in last 3 months: Yes Hx Now: Yes Are you currently on any form of Control: No Pain Present Currently: No Pain Scale Used: Cee-Colón/Numerical Pain scale:: 0 Smoking Status Smoking Status: Never smoker Questionnaires Covid-19 Vaccine Questionnaire Has patient been vacinated for Covid-19 Have you been vacinated for Covid-19: No PHQ-9 PHQ-2 Over the last 2 weeks, how often have you been bothered by any of the following problems? 1. Little interest or pleasure in doing things: not at all 2. Feeling down, depressed, or hopeless: not at all Total score: 0 PHQ-9 3. Trouble falling or staying asleep, or sleeping too much: Not at all 4. Feeling tired or having little energy: Not at all 5. Poor appetite or overeating: Not at all 6. Feeling bad about yourself - or that you are a failure or have let yourself or your family down: Not at all 7. Trouble concentrating on things, such as reading the newspaper or watching television: Not at all 8. Moving or speaking so slowly that other people could have noticed? - Or the opposite - being so fidgety or restless that you have been moving around a lot more than usual: not at all 9. Thoughts that you would be better off or of hurting yourself in some way: Not at all Total score: 0 Source: Developed by Drs. Ambrose Gotti, Lissett Saldana, Peewee Montejo and colleagues, with an educational michaela from [employer]. Depression screen completed yes Social History Living Situation History Lives With: Family Housing: House Housing Other:: Off work on disability due to back pain. 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 Tellez. Good movement no contractions no loss of fluids. EDC 02/13/2025. Sign tubal ligation papers. For repeat at 39 weeks. 01/18/25 -?-?-?-?-?-?-?-?-?-?-?-?- 36w 2d 95.424 kg 116/76 absent 36 134 de creased Good movement no contractions no loss of fluids S cheduled on 01/272501/27/25 -?-?-?-?-?-?-?-?-?-?-?-?- 37w 4d 94.461 kg 112/66 absent unknown 35 145 active Good movement no loss of fluids or vaginal bleeding Patient fell down 3 stairs over the weekend but states she is doing well baby has been moving no loss of fluids or bleeding. Group B strep done. Cervix closed thick and high. Patient has tubal papers. She is scheduled for repeat tubal ligation 02/06/2025. Kick counts and labor precautions given. MARY Calculator Estimated Delivery Date Method Current WG Current Estimate 02/13/25 Manual 37w 4d FINAL mary 1 04/15 BASED ON LMP, CONSISTENT WITH Other Estimates 02/13/25 LMP (Certain) 37w 4d 02/21/25 Ultrasound #1 36w 3d Expected Delivery Route/Plan care labs up-to-date in the chart from Dr. Tellez: Transfer of care at approximately 32 weeks: A positive/antibody screen negative /rubella immune/RPR nonreactive/GC negative /Chlamydia negative /hepatitis B surface antigen negative/HIV negative/ NIPT normal 46 XX/cystic fibrosis-/ and AFP negative/1- hour glucose 98./ Specific Issue/Plans 29-year-old -0-2-2 History of x 2 For elective repeat Desires tubal ligation. Signed papers in the office 01/11/2025 Office Procedures OBC Clinic LOC & Office Proc's Nursing/Assessment Patient Status: Established Patient OB Clinic Nursing Assessment: Medication Reconciliation, Update PMH in EMR and Vital Signs OB Clinic Coordination of Care: Complex Care and Chronic Disease 1-5, Consent,records obtained, informed consent, Education Simp Pt/Fam, 1 Ins Authorization, Lab and Imaging orders, Results/Orders obtained and Staff clarify orders Special Needs: Heart tones Miscellaneous Interventions: Culture Specimen Collection Established Patient Charge Established Patient Point Assignment: 165 Established Patient Point Charge: EP Level 5 (160-above) Assessment & Plan Diagnosis / Problem List (1) Previous delivery affecting : Status: Acute Plan: Repeat scheduled 02/06/2025 with tubal ligation. (2) : Status: Acute Qualifiers: Weeks of gestation: 36 weeks Qualified Code(s): Z3A.36 - 36 weeks gestation of
== END 2025-01-27 09:33 | disposition home or self-care (01) ==
LOC: HODSOBC 08:04
PROVIDERS: Supervising Provider Obstetrics & Gynecology; Visit Provider Obstetrics & Gynecology
DX: O09.293 Supervision of pregnancy with other poor reproductive or obstetric history, third trimester (principal); O34.219 Maternal care for unspecified type scar from previous cesarean delivery; Z3A.37 37 weeks gestation of pregnancy; Z36.85 Encounter for antenatal screening for Streptococcus B
CPT/HCPCS: 99215; G0463

== ENCOUNTER 2025-02-03 08:39 | Outpatient (AMB) | payer MEDICAID, SELFPAY ==
--- NOTE | 2025-02-03 08:55 | OBCLNT_ITS ---
Vital Signs 02/03/25 08:56 Height 1.57 m Height Method Stated Weight 96.303 kg Weight Measurement Method Standing Scale BMI 39.0 BP 115/74 Blood Pressure Source Automatic Cuff Blood Pressure Location Left Upper Arm Position Sitting Respiration 18 Pulse 88 Pulse Source Monitor Temp 97.2 F Temp Source Oral Pulse Oximetry (%) 98 Oxygen Delivery Method Room Air Allergies/Home Meds Allergies & Medications Allergies No Known Allergies Allergy (Verified 02/03/25 08:57) Medication Reconciliation vitamins no.102-iron 90 mg-folate 1 mg-dha 200 mg capsule 1 cap PO QDAY 01/18/25 [History Confirmed 02/03/25] cyclobenzaprine 5 mg tablet 5 mg PO Q8H PRN back pain #5 tabs 01/23/25 [Rx Confirmed 02/03/25] Intake Visit Data Collection New Patient or Established: Established Patient (seen at [facility] within 3 years) Reason for Visit:: OBC Seen by Clinical Staff ONLY (RN/MA): No Hand Winder Required: No Do You Feel Safe at Home: Yes Authorities Contacted: N/A PCP or OBGYN visit in last 3 months: Yes Date of Last PCP or OBGYN visit: 01/27/25 Hx Now: Yes Are you currently on any form of Control: No Pain Present Currently: No Pain Scale Used: Cee-Colón/Numerical Pain scale:: 0 Smoking Status Smoking Status: Never smoker Immunizations Flu Vaccine in the Last 12 Months: No Flu Vaccine Exclusion Criteria: No Exclusion Criteria Questionnaires Covid-19 Vaccine Questionnaire Has patient been vacinated for Covid-19 Have you been vacinated for Covid-19: Yes PHQ-9 PHQ-2 Over the last 2 weeks, how often have you been bothered by any of the following problems? 1. Little interest or pleasure in doing things: not at all 2. Feeling down, depressed, or hopeless: not at all Total score: 0 PHQ-9 3. Trouble falling or staying asleep, or sleeping too much: Not at all 4. Feeling tired or having little energy: Not at all 5. Poor appetite or overeating: Not at all 6. Feeling bad about yourself - or that you are a failure or have let yourself or your family down: Not at all 7. Trouble concentrating on things, such as reading the newspaper or watching television: Not at all 8. Moving or speaking so slowly that other people could have noticed? - Or the opposite - being so fidgety or restless that you have been moving around a lot more than usual: not at all 9. Thoughts that you would be better off or of hurting yourself in some way: Not at all Total score: 0 If you checked off any problems, how difficult have these problems made it for you to do your work, take care of things at home, or get along with other people?: not difficult at all Source: Developed by Drs. Ambrose Gotti, Lissett Saldana, Peewee Montejo and colleagues, with an educational michaela from [employer]. Depression screen completed yes Social History Living Situation History Lives With: Family Housing: House Housing Other:: Off work on disability due to back pain. 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 Tellez. Good movement no contractions no loss of fluids. EDC 02/13/2025. Sign tubal ligation papers. For repeat at 39 weeks. 01/18/25 -?-?-?-?-?-?-?-?-?-?-?-?- 36w 2d 95.424 kg 116/76 absent 36 134 de creased Good movement no contractions no loss of fluids S cheduled on 01/272501/27/25 -?-?-?-?-?-?-?-?-?-?-?-?- 37w 4d 94.461 kg 112/66 absent unknown 35 145 active Good movement no loss of fluids or vaginal bleeding Patient fell down 3 stairs over the weekend but states she is doing well baby has been moving no loss of fluids or bleeding. Group B strep done. Cervix closed thick and high. Patient has tubal papers. She is scheduled for repeat tubal ligation 02/06/2025. Kick counts and labor precautions given. 02/03/25 -?-?-?-?-?-?-?-?-?-?-?-?- 38w 4d 96.303 kg 115/74 absent cephalic 37 145 active Good movement today. Denies any signs of labor. Reports that she is not having any leaking, bleeding or contractions Discuss ed kick count twice a day. Discussed labor precautions and ER precautions. Patient to be n.p.o. after midnight. Patient to get to the hospital at [phone] case. Patient will return in 10 days postop to evaluate scar MARY Calculator Estimated Delivery Date Method Current WG Current Estimate 02/13/25 LMP (Certain) 38w 4d Other Estimates 02/21/25 Ultrasound #1 37w 3d 02/13/25 Manual 38w 4d FINAL mary 02/13 BASED ON LMP, CONSISTENT WITH Expected Delivery Route/Plan care labs up-to-date in the chart from Dr. Tellez: Transfer of care at approximately 32 weeks: A positive/antibody screen negative /rubella immune/RPR nonreactive/GC negative /Chlamydia negative /hepatitis B surface antigen negative/HIV negative/ NIPT normal 46 XX/cystic fibrosis-/ and AFP negative/1- hour glucose 98./ Specific Issue/Plans 29-year-old -0-2-2 History of x 2 For elective repeat Desires tubal ligation. Signed papers in the office 01/11/2025 Notes Visit Date: 02/03/25 Last Updated by: Massiel Izquierdo CNM GBS- Office Procedures OBC Clinic LOC & Office Proc's Nursing/Assessment Patient Status: Established Patient OB Clinic Nursing Assessment: Medication Reconciliation, Update PMH in EMR and Vital Signs OB Clinic Coordination of Care: Consent,records obtained, informed consent, Education Simp Pt/Fam, Lab and Imaging orders, Results/Orders obtained and Staff clarify orders Special Needs: Heart tones Established Patient Charge Established Patient Point Assignment: 110 Established Patient Point Charge: EP Level 3 (80-115) Assessment & Plan Diagnosis / Problem List (1) Previous delivery affecting : Status: Acute (2) Third trimester : Status: Acute Plan N.p.o. after midnight. Registered today for . Patient advised to get to the hospital at [phone] case. Discussed labor precautions and kick count twice a day. Discussed ER precautions. Patient will return in 10 days after C- section for suture removal Additional Plan Follow Up: 10 Days (rtc for c/s f/u)
[2025-02-03 08:56] VITALS: BP 115/74; PULSE 88; RESP 18; TEMP 36.2; O2SAT 98; BMI 39.0
== END 2025-02-03 09:27 | disposition home or self-care (01) ==
LOC: HODSOBC 08:39
PROVIDERS: Supervising Provider Advanced Practice Midwife; Visit Provider Advanced Practice Midwife
DX: O09.293 Supervision of pregnancy with other poor reproductive or obstetric history, third trimester (principal); O34.219 Maternal care for unspecified type scar from previous cesarean delivery; Z3A.38 38 weeks gestation of pregnancy
CPT/HCPCS: 99213; G0463

== ENCOUNTER 2025-02-06 05:40 | Inpatient (IN) | payer MEDICAID, SELFPAY ==
[2025-02-06] VITALS (32 sets, daily range): BP systolic 94–129; BP diastolic 61–81; PULSE 64–103; RESP 16–25; TEMP 36.4–36.8; O2SAT 95–100; BMI 38.9
[2025-02-06] MEDS: RINGERS LACTATED 1000 ML 1,000 ML 100 ML IV (06:12)
[2025-02-06 06:59] LABS: Syphilis Nonreactive (Nonreactive)
[2025-02-06 07:24] LABS: Basophils # (Auto) 0.1 Thou/mm3 (0.0-0.2); Basophils % (Auto) 1 % (0-2.5); Eosinophils # (Auto) 0.1 Thou/mm3 (0.0-0.5); Eosinophils % (Auto) 1 % (0-10); Hematocrit 29.6 % (36.0-46.0); Hemoglobin 9.3 g/dL (12.0-16.0); Immature Granulocytes Auto 0.04 Thou/mm3 (0.00-0.00); Lymphocytes # (Auto) 2.0 Thou/mm3 (1.0-4.8); Lymphocytes % (Auto) 21 % (10-50); Mean Corpuscular HGB Conc 31.4 g/dl (31.0-37.0); Mean Corpuscular Hemoglobin 24.4 pg (25.0-35.0); Mean Corpuscular Volume 78 fL (80-100); Monocytes # (Auto) 0.8 Thou/mm3 (0.0-0.8); Monocytes % (Auto) 9 % (0-12); Neutrophils # (Auto) 6.4 Thou/mm3 (1.8-7.7); Neutrophils % (Auto) 68 % (37-80); Nucleated Red Blood Cell # 0.00 Thou/mm3 (0.00-0.00); Nucleated Red Blood Cell % 0 /100 WBC (0); Platelet Count 242 Thou/mm3 (140-440); RDW Standard Deviation 42.1 fL (36.4-46.3); Red Blood Count 3.81 Miln/mm3 (4.00-5.20); White Blood Count 9.4 Thou/mm3 (3.6-11.0)
[2025-02-06] MEDS: METOCLOPRAMIDE INJ 5 MG/ML VIAL 2 ML 10 MG IVP (07:27)
[2025-02-06] MEDS: FAMOTIDINE INJ 10 MG/ML VIAL 2 ML 20 MG IV (07:28)
[2025-02-06] MEDS: ceFAZolin/D5W 2 GM IV 2 GM/100 ML BAG IV (07:28)
--- NOTE | 2025-02-06 07:42 | PD.LDHP ---
Documentation for date of: 02/06/25 OB Labor/Induct. HPI History of Present Illness Chief complaint: The patient presents for repeat section : 5 Term pregnancies: 2 pregnancies: 0 Living children: 2 History of Abortions: Spontaneous and Elective: 2 History of sections: Yes History of : No Date of last menstrual period: 05/09/24 MARY: 02/13/25 Gestational Age (weeks): 39 Gestational Age (days): 1 Gestational age based on last menstrual period: 39 History of present illness: Patient is a 29-year-old -0-2-2 history of x 2 presents for repeat section. The day of admission she reported good movement no contractions no loss of fluids no vaginal bleeding originally she had wanted a tubal ligation and did sign tubal ligation papers however patient declines tubal ligation at this time. History of Present Dating criteria: LMP confirmed by 2nd trimester US Adequate Care: Yes Ultrasounds: normal mid trimester US Obstetrical complications: none Medical complications: none Labs Maternal Blood Type: A Pos Labs: Positive: Rubella Titre, Negative: RPR, Hepatitis B, HIV, Chlamydia, Gonorrhea and Group Beta Strep and Unknown: Herpes Type 1, Herpes Type 2 and Covid-19 Past Medical History Surgical History SURGICAL: Positive Section Past Medical History Comments PMH COMMENT: No significant past medical history including no diabetes asthma hypertension Patient's BMI is 39 History of section x 2 History of a lipoma being removed from a hip SAB x 2 Meds Home Medications and Allergies Home Medications ?Medication ?Instructions ?Recorded ?Confirmed ?Type vitamins no.102-iron 90 1 cap PO QDAY 01/18/25 02/03/25 History mg-folate 1 mg-dha 200 mg capsule Allergies Allergy/AdvReac Type Severity Reaction Status Date / Time No Known Allergies Allergy Verified 02/06/25 06:09 OB Exam Physical Exam Vital signs: Pulse BP Pulse Ox 96 109/65 99 02/06/25 06:02 02/06/25 06:02 02/06/25 07:22 Constitutional Constitutional: no acute distress Comments: Patient is alert and orient x 3 in no apparent distress Routine Respiratory Exam Respiratory: Present CTA bilaterally Routine Cardiovascular Exam Cardiovascular: Present RRR Routine Abdominal Exam Abdominal: Present soft Detailed Labor and Delivery Exam Membranes: intact monitor accelerations: 15x15 monitor decelerations: None senior living variability: Moderate (11-25) Contraction frequency (min): Irregular Tachysystole: No Contraction intensity: Mild OB Results Labs 02/06/25 05:58 Labs: Short CBC 02/06/25 Range/Units 05:58 WBC 9.4 (3.6-11.0) Thou/mm3 Hgb 9.3 L (12.0-16.0) g/dL Hct 29.6 L (36.0-46.0) % Plt Count 242 (140-440) Thou/mm3 OB Assessment & Plan Assessment and Plan (1) Previous delivery affecting : Status: Acute Assessment and plan: For elective repeat section. The risks of the procedure were discussed with the patient including the risk of bleeding and infection blood transfusion damage to bowel bladder blood vessels other organs. Prolonged hospital stay and further surgery should any above occur. Patient is anemic and we will start 2 lines and keep 2 units on hold. Additional Plan Additional Plan Comment: For elective repeat section at this time. Patient does declined tubal ligation.
--- NOTE | 2025-02-06 08:49 | PD.LDDELS ---
Data (Fox) Data Hx Section: Yes Maternal Blood Type: A Pos Rubella Titre: Positive RPR: Non-reactive Labs: Negative: RPR, Hepatitis B, HIV, Chlamydia, Gonorrhea and Group Beta Strep : 5 Term: 2 : 0 Livin Abortions: Spontaneous & Theraputic: 2 Delivery Data (Fox) Labor Data Induction/Augmentation Agent: None ROM date: 02/06/25 ROM time: 08:04 Amniotic membrane rupture type: Artificial Amniotic fluid description: Clear Delivery Data EDC: 02/13/25 EDC calculated by:: LMP/early US confirmation Date of arrival to unit: 02/06/25 Onset of labor date: 02/06/25 Onset of labor time: 08:04 Complete dilation date: 02/06/25 Complete dilation time: 08:04 delivery date: 02/06/25 delivery time: 08:06 Placenta delivery date: 02/06/25 Placenta delivery time: 08:07 Stage 1 total time: Labor - Stage 1 Duration 0 minutes Delivered by: Mita Delivery nurse: Shwetha Arriaga nurse: Van Verduz[employer] Manufacturing Engineer Paint at delivery: Yes Support person(s) at delivery: fob Other staff at delivery: see or record Delivery Method Delivery method: Low Transverse Presentation: Vertex position: OA Anesthesia Type Anesthesia Type: Spinal Delivery Room Medications Delivery room medications: Pitocin 20 u IV Placenta Placenta delivery description: Spontaneous Cord blood sent to lab: Yes cord blood collection: Cord Blood Type Episiotomy Episiotomy description: c/s EBL Estimated blood loss (ml): 400 Umbilical Cord cord description: 3 Vessels Additional Procedures See op report for further details Complications Complications: None [place] Data (Fox) [place] Data [place]'s name: Natalie order: 1 [place]'s gender: Female Identification band number: [id number] weight (gms): 3210 g Weight (pounds): 7 lbs and 1.2 ozs length: 51 cm 1 minute: 8 5 minutes: 9
--- NOTE | 2025-02-06 08:53 | PD.GYNPROC ---
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 Originally she had signed tubal ligation papers in the office and desired tubal ligation however the morning of her surgery she declined permanent sterilization in the form of a tubal ligation. Pre-Op diagnosis: 1. Intrauterine at 39 weeks 2. Previous x 2, for elective repeat 3. Preop anemia with hemoglobin at 9.2. Post-Op diagnosis: Same Anesthesia type: Spinal Procedure description: After obtaining informed consent, the patient was brought back to the operating room and spinal anesthesia administered. She was then prepped and draped in the dorsal supine position with a leftward tilt in a normal sterile fashion. A Hobbs catheter was inserted into the patient's bladder. The patient was given 2 g of Ancef by anesthesia. A Pfannenstiel skin incision was made with a scalpel through the patient's prior scar and the incision extended laterally. The incision was carried down to the underlying fascia. The fascia was incised in the midline, and the fascial incision extended laterally using Melgoza scissors. The superior aspect of the left fascia was grasped Kelly clamps, and the underlying rectus muscles dissected off using blunt and sharp dissection. This was repeated in the inferior aspect of the incision. The rectus muscles were in the midline and the peritoneum entered sharply using a scalpel. This was extended superiorly and inferiorly with good visualization of the bladder. The bladder blade was inserted and the uterus was incised in a low transverse fashion above the bladder reflection. The uterine incision was extended laterally with blunt dissection with the surgeon's fingers. The bag ojeda was ruptured, and clear fluid was noted. The bladder blade was removed and the infant was delivered atraumatically in a vertex presentation with the help of a vacuum. The baby was vigorous and crying at . The cord was clamped and cut after waiting approximately 1 minute. The was handed off to the waiting pediatric staff. Cord blood was collected and cord gases were saved. The placenta was then manually removed and the uterus exteriorized and cleared of all clots and debris. The uterine incision was repaired using 0 Monocryl in a running locked fashion. Excellent hemostasis was noted. The uterus was returned to the patient's abdominal cavity, and copious irrigation carried out with warm normal saline. The uterine incision was reexamined and noted to be hemostatic. After ensuring the rectus muscles were hemostatic, these were reapproximated in the midline using a running suture of 0 Monocryl. The fascia was closed with 0 Vicryl in a running fashion. The subcutaneous tissues were irrigated and found to be hemostatic. These were reapproximated in a running fashion using 2-0 plain. The skin was closed with a subcuticular suture of 4-0 Monocryl. A Dermabond dressing was placed across the incision. The patient tolerated the procedure well, sponge, lap, needle, and instrument counts were correct x 2. The patient went to the recovery area awake and in stable condition. Of note, the baby was doing well in recovery. Fluids: crystalloid Fluid amount (mL): 3,000 Urine output (mL): 100 Specimen: none Implants: None Estimated blood loss (ml): 400 Findings: Liveborn female in the OA presentation with no nuchal cord and meconium. Apgars were 8 and 9. Weight was 7 pounds 1 ounce. Uterus tubes ovaries appeared grossly normal. Very little scar tissue present the patient's abdomen. She had a bulging, thin lower uterine segment with no window. Complications: none Surgical staff MAC Wilson RNFA Operation Date: 02/06/25 07:45 <No data on this case meets the specified criteria> Diagnosis Discharge Diagnosis (1) Previous delivery affecting : Status: Acute Problem details: Previous x 2, for elective repeat Problem List Completed Was Problem List Reviewed/Reconciled?: Yes
--- NOTE | 2025-02-06 11:32 | PC.NURSE ---
Report received from Radha FERNANDO. Pt resting quietly in bed w/ mild pain. Pt states she is wanting to rest. Will cont to monitor.
[2025-02-06] MEDS: KETOROLAC INJ 30 MG/ML VIAL IVP ×2 (13:08→23:42)
--- NOTE | 2025-02-06 18:17 | PC.LAC ---
Pt states she is feeling much better, eating w/o N/V and doesn't want the Toradol. She said she will ask for PO med later when she has pain.
[2025-02-06] MEDS: OXYTOCIN in NS 20 units 20 UNIT/1,000 ML BAG 125 UNIT IV (19:22)
[2025-02-06] MEDS: FERRIC SOD GLUC INJ 125 MG in SODIUM CHLORIDE 0.9% 100 ML 110 MG IV (19:41)
[2025-02-06] MEDS: HYDROcodone/APAP 5/325 TABLET 1 TAB PO (20:02)
[2025-02-07] VITALS (14 sets, daily range): BP systolic 109–130; BP diastolic 65–84; PULSE 63–86; RESP 16–20; TEMP 36.3–36.9; O2SAT 96–100
[2025-02-07 05:24] LABS: Basophils # (Auto) 0.1 Thou/mm3 (0.0-0.2); Basophils % (Auto) 0 % (0-2.5); Eosinophils # (Auto) 0.1 Thou/mm3 (0.0-0.5); Eosinophils % (Auto) 1 % (0-10); Hematocrit 25.3 % (36.0-46.0); Immature Granulocytes Auto 0.06 Thou/mm3 (0.00-0.00); Lymphocytes # (Auto) 1.6 Thou/mm3 (1.0-4.8); Lymphocytes % (Auto) 13 % (10-50); Mean Corpuscular HGB Conc 30.0 g/dl (31.0-37.0); Mean Corpuscular Hemoglobin 23.5 pg (25.0-35.0); Mean Corpuscular Volume 78 fL (80-100); Monocytes # (Auto) 1.2 Thou/mm3 (0.0-0.8); Monocytes % (Auto) 10 % (0-12); Neutrophils # (Auto) 9.3 Thou/mm3 (1.8-7.7); Neutrophils % (Auto) 76 % (37-80); Nucleated Red Blood Cell # 0.00 Thou/mm3 (0.00-0.00); Nucleated Red Blood Cell % 0 /100 WBC (0); Platelet Count 199 Thou/mm3 (140-440); RDW Standard Deviation 42.8 fL (36.4-46.3); Red Blood Count 3.23 Miln/mm3 (4.00-5.20); White Blood Count 12.3 Thou/mm3 (3.6-11.0)
[2025-02-07 05:32] LABS: Hemoglobin 7.6 g/dL (12.0-16.0)
[2025-02-07] MEDS: DOCUSATE SOD 100 MG CAPSULE PO (09:41)
[2025-02-07] MEDS: FERRIC SOD GLUC INJ 125 MG in SODIUM CHLORIDE 0.9% 100 ML 110 MG IV (09:41)
[2025-02-07] MEDS: HYDROcodone/APAP 5/325 TABLET 1 TAB PO (09:41)
--- NOTE | 2025-02-07 11:51 | PC.LAC ---
per syrup maker request, set mom up with electric pump. issued kit and set up for moms use, gave instructions on how to use and clean after use. showed mom all setting and explained to stay on schedule of every 2-3 hours including at night. duration should be at least 20 minutes, double pumping, whether she sees anything or not. explained that since she has not had any stimulation since delivery she may have a few times of pumping that she could see no milk at all, which would be normal. mom understood
--- NOTE | 2025-02-07 12:18 | PD.LDPPPRG ---
Subjective Subjective Interval history: Delivery type: Patient doing well this morning. No acute complaints. Ambulating, tolerating p.o., and voiding without difficulty. HTN/Pre-E screen negative: No CP, SOB, BRANDT, visual changes, RUQ pain. : Yes Lochia: diminishing Bowel: Flatus + / BM + UOP: Adequate Exam Vital Signs Temp Pulse Resp BP Pulse Ox O2 Del Method 98.2 F 75 18 130/84 98 Room Air 02/07/25 10:02/07/25 10:02/07/25 10:02/07/25 10:02/07/25 10:02/07/25 08:00 Constitutional Constitutional: no acute distress Routine HEENT Exam Head: Present normocephalic and atraumatic Eye: Present EOMI and PERRL ENT: Present mucous membranes moist Routine Neck Exam Neck: Present supple and trachea midline Routine Respiratory Exam Respiratory: Present chest non-tender, lungs clear, normal breath sounds and no resp distress Routine Cardiovascular Exam Cardiovascular: Present RRR Routine Abdominal Exam Abdominal: Present soft and normoactive bowel sounds Routine Extremities Exam Extremities: Present full ROM Routine Skin Exam Skin: Present intact, dry and warm Routine Neurological Exam Neurological: Present alert, oriented X3 and CN II-XII intact Routine Psychiatric Exam Psychiatric: Present normal affect and normal thought process Objective Labs 02/07/25 04:42 Labs: Laboratory Results - last 24 hr 02/06/25 02/07/25 06:04 04:42 WBC 12.3 H RBC 3.23 L Hgb 7.6 L Hct 25.3 L MCV 78 L MCH 23.5 L MCHC 30.0 L RDW Std Deviation 42.8 Plt Count 199 D Neut % (Auto) 76 Lymph % (Auto) 13 [place] % (Auto) 10 Eos % (Auto) 1 Baso % (Auto) 0 Neut # (Auto) 9.3 H Lymph # (Auto) 1.6 [place] # (Auto) 1.2 H Eos # (Auto) 0.1 Baso # (Auto) 0.1 Immature Gran # (Auto) 0.06 H Absolute Nucleated RBC 0.00 Immature Gran % 1 H Nucleated RBC % 0 Blood Type A Positive Antibody Screen NEGATIVE Crossmatch See Detail Blood Bank Wristband ID Yes Assessment & Plan Problem List (1) Previous delivery affecting : Status: Acute Assessment and plan: Assessment: PostOp Day #:1 Maternal condition: Stable Plan: General: Stable, afebrile. Continue routine monitoring. Encourage ambulation and incentive spirometry. HEENT/Cardiac/Respiratory: Hemodynamically stable. Monitor vitals. No chest pain or shortness of breath. GI: Tolerating diet, flatus/BM as documented. Bowel regimen: Colace / Senna / Miralax PRN : Voiding spontaneously / Hobbs to gravity (remove when ambulating). Monitor urine output and lochia. Hematology: H/H pending / reviewed. Iron supplementation: [PO ferrous sulfate / IV if indicated]. Transfusion if Hb < 7 and symptomatic. Incision/Perineum: Vaginal: Perineum healing well Wound care: Keep clean and dry. Monitor for signs of infection. Breast: support as needed. Nipple care with lanolin / warm compresses PRN. Pain Control: Multimodal pain control: [Acetaminophen + NSAID ? Narcotics PRN]. Continue routine post-op analgesia schedule. DVT Prophylaxis: Early ambulation. SCDs while in bed. Infection Prophylaxis: Afebrile. No antibiotics indicated unless otherwise noted. Psych: Mood stable. Monitor for depression symptoms. [place] Depression Scale prior to discharge. Contraception: Discuss prior to discharge/ in office Disposition: Continue inpatient monitoring. Anticipate discharge on day 2 if clinically stable. Routine precautions reviewed. Follow-up: 2 week wound check & 6-week visit. Time Spent With Patient Time: Total time spent is greater than 50% in coordination of care (as documented) at patient's floor/unit and/or counseling patient:
[2025-02-07] MEDS: KETOROLAC INJ 30 MG/ML VIAL IVP (17:39)
[2025-02-08] VITALS: BP 116/72; PULSE 71; RESP 16; TEMP 36.7; O2SAT 96
[2025-02-08] MEDS: KETOROLAC INJ 30 MG/ML VIAL IVP (00:42)
[2025-02-08 04:00] VITALS: BP 117/73; PULSE 69; RESP 16; TEMP 36.8; O2SAT 98
[2025-02-08 05:11] LABS: Basophils # (Auto) 0.0 Thou/mm3 (0.0-0.2); Basophils % (Auto) 0 % (0-2.5); Eosinophils # (Auto) 0.1 Thou/mm3 (0.0-0.5); Eosinophils % (Auto) 1 % (0-10); Hematocrit 27.9 % (36.0-46.0); Hemoglobin 8.9 g/dL (12.0-16.0); Immature Granulocytes Auto 0.09 Thou/mm3 (0.00-0.00); Lymphocytes # (Auto) 2.0 Thou/mm3 (1.0-4.8); Lymphocytes % (Auto) 19 % (10-50); Mean Corpuscular HGB Conc 31.9 g/dl (31.0-37.0); Mean Corpuscular Hemoglobin 25.2 pg (25.0-35.0); Mean Corpuscular Volume 79 fL (80-100); Monocytes # (Auto) 1.3 Thou/mm3 (0.0-0.8); Monocytes % (Auto) 11 % (0-12); Neutrophils # (Auto) 7.4 Thou/mm3 (1.8-7.7); Neutrophils % (Auto) 68 % (37-80); Nucleated Red Blood Cell # 0.00 Thou/mm3 (0.00-0.00); Nucleated Red Blood Cell % 0 /100 WBC (0); Platelet Count 200 Thou/mm3 (140-440); RDW Standard Deviation 43.2 fL (36.4-46.3); Red Blood Count 3.53 Miln/mm3 (4.00-5.20); White Blood Count 11.0 Thou/mm3 (3.6-11.0)
[2025-02-08 08:00] VITALS: BP 124/78; PULSE 67; RESP 16; TEMP 36.7; O2SAT 98
[2025-02-08] MEDS: FERRIC SOD GLUC INJ 125 MG in SODIUM CHLORIDE 0.9% 100 ML 110 MG IV (08:54)
--- NOTE | 2025-02-08 08:56 | PD.LDPPPRG ---
Subjective Subjective Interval history: The patient is a 29-year-old -0-0-3 status post repeat scheduled elective 02/06/[address] Sammi Fan. The patient came in with a hemoglobin of 9.3. Postdelivery hemoglobin 7.6. She had received 2 units of blood and now her hemoglobin today is 8.9. The patient is out of bed this morning sitting in a chair. Father of the baby is at bedside. Patient reports no heavy bleeding. She is voiding normally and passing flatus. She is tolerating a general diet. Pain is controlled with oral pain medications. Patient is getting 1 more dose of IV iron and then she will be ready for discharge. She denies any heavy vaginal bleeding. Exam Vital Signs Temp Pulse Resp BP Pulse Ox O2 Del Method 98.1 F 67 16 124/78 98 Room Air 02/08/25 08:00 02/08/25 08:00 02/08/25 08:00 02/08/25 08:00 02/08/25 08:00 02/08/25 08:00 Narrative Exam The patient is alert and orient x 3 in no apparent distress. Fundus is firm, nontender. Incision is clean dry and intact. Objective Labs 02/08/25 04:35 Labs: Laboratory Results - last 24 hr 02/06/25 02/08/25 06:04 04:35 WBC 11.0 RBC 3.53 L Hgb 8.9 L Hct 27.9 L MCV 79 L MCH 25.2 MCHC 31.9 RDW Std Deviation 43.2 Plt Count 200 Neut % (Auto) 68 Lymph % (Auto) 19 [place] % (Auto) 11 Eos % (Auto) 1 Baso % (Auto) 0 Neut # (Auto) 7.4 Lymph # (Auto) 2.0 [place] # (Auto) 1.3 H Eos # (Auto) 0.1 Baso # (Auto) 0.0 Immature Gran # (Auto) 0.09 H Absolute Nucleated RBC 0.00 Immature Gran % 1 H Nucleated RBC % 0 Blood Type A Positive Antibody Screen NEGATIVE Crossmatch See Detail Blood Bank Wristband ID Yes Assessment & Plan Problem List (1) Previous delivery affecting : Problem details: Patient is doing well. Discharge home postoperative day #2 in stable condition. Discharge instructions given. Follow-up in clinic in 2 weeks for wound check. Status: Acute Time Spent With Patient Time: Total time spent is greater than 50% in coordination of care (as documented) at patient's floor/unit and/or counseling patient: Time with patient: less than 15 minutes
--- NOTE | 2025-02-08 09:04 | ESDS_ITS ---
DS: Providers Provider Date of admission: 02/06/25 05:40 Primary care physician: Physician No Primary/Family Admitting Provider: Prachi Fan [facility] ([facility]) Attending Provider on Admission: Jw Romano MD Consults: 02/06/25 11:36 Referral Routine Comment: Attending Provider on DC: Prachi Fan MD ([facility]) Discharging Provider: Prachi Fan MD ([facility]) Anticipated date of discharge: 02/08/25 DS: Diagnosis Discharge Diagnosis (1) Previous delivery affecting : Status: Acute Problem List Completed Was Problem List Reviewed/Reconciled?: Yes Summary/Hosp Course Brief History: Patient is a 29-year-old -0-2-2 history of x 2 presents for repeat section. The day of admission she reported good movement no contractions no loss of fluids no vaginal bleeding originally she had wanted a tubal ligation and did sign tubal ligation papers however patient declines tubal ligation at this time. See history and physical for further details Hospital course: Patient underwent an uncomplicated repeat low-transverse section 02/06/2025. Please see op report for further details. Postoperative day #1 patient was doing well. Her predelivery hemoglobin was 9.3. Postdelivery hemoglobin was 7.6. Patient was transfused 2 units of packed red blood cells. She was also given IV iron. On postoperative day #2 patient was ambulating tolerating a general diet voiding and passing flatus. Her bleeding was minimal. Her post transfusion hemoglobin was 8.9. She was discharged home postoperative day #2 in stable condition. Discharge instructions including no heavy lifting intercourse tampons douching x 6 weeks. She was to follow-up in 2 weeks for a wound check. Discharge medications included Tylenol as needed ibuprofen 600 every 6 hours as needed and [place] oxycodone 2 pills every 6 hours as needed #28 no refills. Peripartum Data Delivery Method: Low Transverse Episiotomy Description: c/s Procedures: Procedures Operation Date: 02/06/25 07:45 Actual Procedure Side Surgeon p in OB Not Applicable Prachi Fan ([facility])MD complications: transfusion (Patient had a blood transfusion of 2 units packed red blood cells for a low starting hemoglobin of 9.3.) Status at Discharge Cognitive/behavioral status at discharge: Patient is alert and oriented x 3 in no apparent distress Functional status at discharge: independent ambulation Overall status at discharge: patient is progressing back to baseline Time Spent with Patient Time attestation: Total time spent providing and/or coordinating discharge services: Time spent: Less than 30 minutes Specific discharge activities: No heavy lifting, intercourse, douching, swimming pools x 6 weeks. Follow-up in 2 weeks. Exam Vital Signs Temp Pulse Resp BP Pulse Ox O2 Del Method 98.1 F 67 16 124/78 98 Room Air 02/08/25 08:00 02/08/25 08:00 02/08/25 08:00 02/08/25 08:00 02/08/25 08:00 02/08/25 08:00 Narrative Exam Patient is alert and orient x 3 in no apparent distress Constitutional Constitutional: no acute distress Comments: Fundus firm nontender incision clean dry and intact extremities show no significant edema or erythema. Discharge Plan Plan Patient Disposition: HOME (Self Care) Disposition Comment: Stable Patient condition on transfer: Stable Prescriptions/Referrals Prescriptions/Med Rec: New acetaminophen 325 mg Tablet 650 mg PO Q6HR PRN (Reason: Patient rated pain of 3) Qty: 30 0RF docusate sodium 100 mg Capsule 100 mg PO QDAY Qty: 30 0RF ibuprofen 600 mg tablet 600 mg PO Q6H PRN (Reason: pain) Qty: 90 0RF hydrocodone-acetaminophen 5-325 mg Tablet 2 tab PO Q6HR MDD 4 PRN (Reason: Patient rated pain 9 to 10) Qty: 20 0RF Continued PNV [id number] 90 mg iron- 1 mg-200 mg capsule 1 cap PO QDAY Discontinued cyclobenzaprine 5 mg tablet 5 mg PO Q8H PRN (Reason: back pain) Qty: 5 0RF Referrals: No Primary/Family,Physician [Primary Care Provider] Patient/Caregiver Discharge Instructions Discharge Activity: activity as tolerated Other Discharge Activity Instructions:: No heavy lifting, intercourse tampons douching x 6 weeks follow-up in 2 weeks Other Discharge Diet Instructions: High iron diet. Take vitamins. Education Materials: Breast Care After , After a , C Section Dc Print Language: Spanish Activity Restrictions/Additional Instructions: Call with heavy vaginal bleeding, fevers, severe pain, or depression. Stand Alone Forms: Janice Myrick Info., Patient Portal Info Letter Discharge Order Discharge Orders: Discharge (Routine); Ordered 02/08/25 Ordered By: Prachi Fan ([facility]) Planned Discharge Date 02/08/25
== END 2025-02-08 10:35 | disposition home or self-care (01) | DRG 539 ==
LOC: S4SX 06:36 → S4NX 08:08
PROVIDERS: Admitting Provider Obstetrics & Gynecology; Visit Provider Obstetrics & Gynecology
PROC: 10E0XZZ Delivery of Products of Conception, External Approach (ICD-10-PCS; CPT 59514; principal; 2025-02-06 07:30)
DX: O34.211 Maternal care for low transverse scar from previous cesarean delivery (principal); Z37.0 Single live birth; Z3A.39 39 weeks gestation of pregnancy; O99.02 Anemia complicating childbirth; Z30.2 Encounter for sterilization
CPT/HCPCS: 36415; 85025; 86780; 86850; 86900; 86901; 86923; A4217; A4314; A4649; J0689; J1885; J2274; J2371; J2405; J2590; J2765; J2916; J3010; J3490; J7050; J7120; P9016; A9270; J2270

== ENCOUNTER 2025-02-16 11:26 | Outpatient (AMB) | payer MEDICAID, SELFPAY ==
--- NOTE | 2025-02-16 11:15 | AMBOBPPN_ITS ---
Vital Signs 02/16/25 11:36 Weight 88.167 kg Weight Measurement Method Standing Scale BP 114/76 Blood Pressure Source Automatic Cuff Blood Pressure Location Left Upper Arm Position Sitting Respiration 18 Pulse 82 Pulse Source Monitor Temp 97.2 F Temp Source Oral Pulse Oximetry (%) 98 Oxygen Delivery Method Room Air Allergies/Home Meds Allergies & Medications Allergies No Known Allergies Allergy (Verified 02/16/25 11:37) Medication Reconciliation vitamins no.102-iron 90 mg-folate 1 mg-dha 200 mg capsule 1 cap PO QDAY 01/18/25 [History Confirmed 02/16/25] acetaminophen 325 mg tablet 650 mg (2 x 325 mg) PO Q6HR PRN Patient rated pain of 3 #30 tabs 02/08/25 [Rx Confirmed 02/16/25] docusate sodium 100 mg capsule 100 mg PO QDAY #30 caps 02/08/25 [Rx Confirmed 02/16/25] hydrocodone 5 mg-acetaminophen 325 mg tablet 1 tab PO Q4HR PRN Patient rated pain 7 to 8 #20 tabs 02/08/25 [Rx Confirmed 02/16/25] hydrocodone 5 mg-acetaminophen 325 mg tablet 2 tab PO Q6HR PRN Patient rated pain 9 to 10 #20 tabs 02/08/25 [Rx Confirmed 02/16/25] hydrocodone 7.5 mg-acetaminophen 325 mg tablet 1 tab PO Q6H PRN pain #20 tabs 02/08/25 [Rx Confirmed 02/16/25] ibuprofen 600 mg tablet 600 mg PO Q6H PRN pain #90 tabs 02/08/25 [Rx Confirmed 02/16/25] Intake Visit Data Collection New Patient or Established: Established Patient (seen at [facility] within 3 years) Reason for Visit:: PP Seen by Clinical Staff ONLY (RN/MA): No Inside Steward/Stewardess Required: No Do You Feel Safe at Home: Yes Authorities Contacted: N/A PCP or OBGYN visit in last 3 months: Yes Hx Now: Yes Are you currently on any form of Control: No Pain Present Currently: No Pain Scale Used: Cee-Colón/Numerical Pain scale:: 0 Smoking Status Smoking Status: Never smoker Immunizations Flu Vaccine in the Last 12 Months: No Flu Vaccine Exclusion Criteria: No Exclusion Criteria 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 at Home: Yes EPDS - PP Depression Screening [place] Pospartum Depression Screen I have been able to laugh and see the funny side of things: (0) As much as I always could I have looked forward with enjoyment to things: (0) As much as I ever did I have blamed myself unnecessarily when things went wrong: (0) No, never I have been anxious or worried for no good reason: (0) No, not at all I have felt scared or panicky for no very good reason: (0) No, not at all Things have been getting on top of me: (0) No, I have been coping as well as ever I have been so unhappy that I have had difficulty sleeping: (0) No, not at all I have felt sad or miserable: (0) No, not at all I have been so unhappy that I have been crying: (0) No, never The thought of harming myself has occurred to me: (0) Never Total Score: EPDS Score: Referral is indicated for score of 9 or more, suicidal, or if provider believes patient is depressed regardless of score.: 0 EPDS completed yes Care OB Visit Log OB Flowsheet Initial Weight: Not Recorded Date -?-?-?-?-?-?-?-?-?-?-?-?- EGA Weight BP Alb Glu CTX Pres Fundal ht FHR Mov Dilation Station Effacement Hx Notes Visit Note 01/11/25 -?-?-?-?-?-?-?-?-?-?-?-?- 35w 2d 94.347 kg 114/71 absent unknown 34 156 active Transfer of care Dr. Tellez. Good movement no contractions no loss of fluids. EDC 02/13/2025. Sign tubal ligation papers. For repeat at 39 weeks. 01/18/25 -?-?-?-?-?-?-?-?-?-?-?-?- 36w 2d 95.424 kg 116/76 absent 36 134 de creased Good movement no contractions no loss of fluids S cheduled on 01/272501/27/25 -?-?-?-?-?-?-?-?-?-?-?-?- 37w 4d 94.461 kg 112/66 absent unknown 35 145 active Good movement no loss of fluids or vaginal bleeding Patient fell down 3 stairs over the weekend but states she is doing well baby has been moving no loss of fluids or bleeding. Group B strep done. Cervix closed thick and high. Patient has tubal papers. She is scheduled for repeat tubal ligation 02/06/2025. Kick counts and labor precautions given. 02/03/25 -?-?-?-?-?-?-?-?-?-?-?-?- 38w 4d 96.303 kg 115/74 absent cephalic 37 145 active Good movement today. Denies any signs of labor. Reports that she is not having any leaking, bleeding or contractions Discuss ed kick count twice a day. Discussed labor precautions and ER precautions. Patient to be n.p.o. after midnight. Patient to get to the hospital at [phone] case. Patient will return in 10 days postop to evaluate scar MARY Calculator Estimated Delivery Date Method Current WG Current Estimate 02/13/25 LMP (Certain) 40w 3d Other Estimates 02/21/25 Ultrasound #1 39w 2d 02/13/25 Manual 40w 3d FINAL mary 02/13 BASED ON LMP, CONSISTENT WITH Expected Delivery Route/Plan care labs up-to-date in the chart from Dr. Tellez: Transfer of care at approximately 32 weeks: A positive/antibody screen negative /rubella immune/RPR nonreactive/GC negative /Chlamydia negative /hepatitis B surface antigen negative/HIV negative/ NIPT normal 46 XX/cystic fibrosis-/ and AFP negative/1- hour glucose 98./ Specific Issue/Plans 29-year-old -0-2-2 History of x 2 For elective repeat Desires tubal ligation. Signed papers in the office 01/11/2025 Notes Visit Date: 02/03/25 Last Updated by: Massiel Izquierdo CNM GBS- HPI Interval History: normal post op and postpartm course Delivery type: Was labor induced: no Gestational age at delivery (weeks): 39 Delivery date: 02/06/25 Delivering provider: Dr Fan Delivery complications: No Delivery complications comment: none Is patient : No Is patient sexually active: No Contraception planned: Nexplanon next visit Review of Systems Review of Systems ROS limited to current WEBMETHODS CONSULTANT complaints: Yes Narrative Review of Systems: negative Exam Narrative Physical exam: alert x3 chest clear CVS RRR NO thromegaly Uterus is nontender Uterus is firm Just below the umbilicus Bowel sounds present Abdomen soft no hernias noted/no CVAT Incision CDI No drainage Appropriately tender No calf tenderness Edema Office Procedures [facility] LOC & Office Proc's Nursing/Assessment Patient Status: Established Patient [facility] Nursing Assessment: Medication Reconciliation, Update PMH in EMR and Vital Signs [facility] Clinic Coordination of Care: Consent,records obtained, informed consent, Education Simp Pt/Fam, Lab and Imaging orders, Results/Orders obtained and Staff clarify orders Established Patient Charge Established Patient Point Assignment: 80 Established Patient Point Charge: EP Level 3 (80-115) Assessment & Plan Care Reviewed delivery summary and any complications: Yes Uterus involuted to: appropriately Perineal / incision healing noted: Yes Screened for depression: Yes Discussed family planning & contraception: Yes Contraception planned: Nexplanon next visit Counseling on safe resumption of sexual activity: Yes Counseling on gradual excercise: Yes Referred to field applications specialist: No Counseled on good nutrition, hydration, and self care: Yes Reviewed vaccine status: Yes Vaccines due: other Additional follow up plans: POd # 10 doing well Additional counseling & anticipatory guidance provided: 29 years old s/p repeat LTCS at 39.1 weeks on 02/06/2025 / doing well . She declined tubal salpingectomy at time of c section follow up in 4 weeks / desires nexplanon insertion at that time
[2025-02-16 11:36] VITALS: BP 114/76; PULSE 82; RESP 18; TEMP 36.2; O2SAT 98
== END 2025-02-16 11:58 | disposition home or self-care (01) ==
LOC: HODSOBC 11:26
PROVIDERS: Supervising Provider Obstetrics & Gynecology; Visit Provider Obstetrics & Gynecology
DX: Z39.2 Encounter for routine postpartum follow-up (principal)
CPT/HCPCS: 99213; G0463

== ENCOUNTER 2025-03-20 10:05 | Outpatient (AMB) | payer MEDICAID, SELFPAY ==
[2025-03-20 10:22] VITALS: BP 104/71; PULSE 83; RESP 18; TEMP 36.2; O2SAT 96; BMI 35.9
--- NOTE | 2025-03-20 10:22 | AMB.OBPP ---
Vital Signs 03/20/25 10:22 Height 1.57 m Height Method Stated Weight 88.507 kg Weight Measurement Method Standing Scale BMI 35.9 BP 104/71 Blood Pressure Source Automatic Cuff Blood Pressure Location Right Upper Arm Position Sitting Respiration 18 Pulse 83 Pulse Source Monitor Temp 97.1 F Temp Source Temporal Artery Scan Pulse Oximetry (%) 96 Oxygen Delivery Method Room Air Allergies/Home Meds Allergies & Medications Allergies No Known Allergies Allergy (Verified 03/20/25 10:23) Medication Reconciliation desogestrel-e.estradiol 0.15 mg-0.02 mg(21)/e.estrad 0.01 mg(5) tablet (Kariva (28)) 1 tab PO QDAY #84 tabs 03/20/25 [Rx] Intake Visit Data Collection New Patient or Established: Established Patient (seen at [facility] within 3 years) Reason for Visit:: Seen by Clinical Staff ONLY (RN/MA): No Psychology Clinician Required: No Do You Feel Safe at Home: Yes Authorities Contacted: N/A PCP or OBGYN visit in last 3 months: Yes Hx Now: No Are you currently on any form of Control: No Last menstrual period: 03/17/25 Pain Present Currently: No Pain Scale Used: Cee-Colón/Numerical Pain scale:: 0 Smoking Status Smoking Status: Never smoker Immunizations Flu Vaccine in the Last 12 Months: No Flu Vaccine Exclusion Criteria: No Exclusion Criteria 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 at Home: Yes EPDS - PP Depression Screening [place] Pospartum Depression Screen I have been able to laugh and see the funny side of things: (1) Not quite so much now I have looked forward with enjoyment to things: (1) Rather less than I used to I have blamed myself unnecessarily when things went wrong: (2) Yes, some of the time I have been anxious or worried for no good reason: (3) Yes, very often I have felt scared or panicky for no very good reason: (2) Yes, sometimes Things have been getting on top of me: (2) Yes, sometimes I haven't been coping as well as usual I have been so unhappy that I have had difficulty sleeping: (2) Yes, sometimes I have felt sad or miserable: (1) Not very often I have been so unhappy that I have been crying: (2) Yes, quite often The thought of harming myself has occurred to me: (0) Never EPDS completed yes HPI Interval History: normal post op and postpartm course Delivery type: Was labor induced: no Gestational age at delivery (weeks): 39 Delivery date: 02/06/25 Delivering provider: Dr Fan Delivery complications: No Delivery complications comment: none Is patient : No Is patient sexually active: No Contraception planned: Nexplanon this visit Was or delivery considered high risk: Yes Delivery type: Gestational age at delivery (weeks): 39 Delivering provider: Dr Fan Contraception planned: pills regular BCPills as not breast feeding Review of Systems Review of Systems ROS limited to current ELASTIC TAPE INSERTER complaints: Yes Narrative Review of Systems: Patient has no/ complaints Headache no Blurry vision no Chest pain no Palpitations no Shortness of breath no Nausea or vomiting or constipation no Back pain no Dysuria no Dizziness no calf pain no She is voiding spontaneously Passing flatus yes Lochia minimal yes NOt breast feeding Exam Narrative Physical exam: alert x3 chest clear CVS RRR NO thyromegaly Uterus not palpable Bowel sounds present Abdomen soft no hernias noted/no CVAT Incision CDI No drainage NON tender No calf tenderness Edema None declined pelvic exam General Limitations: no limitations General Appearance: alert, in no apparent distress, cooperative, healthy appearing and well groomed Office Procedures [facility] LOC & Office Proc's Nursing/Assessment Patient Status: Established Patient [facility] Nursing Assessment: Medication Reconciliation, Update PMH in EMR and Vital Signs [facility] Clinic Coordination of Care: Complex Care and Chronic Disease 1-5, Education Complex Pt/Fam, Consent,records obtained, informed consent, Lab and Imaging orders, Results/Orders obtained and Staff clarify orders Established Patient Charge Established Patient Point Assignment: 110 Established Patient Point Charge: EP Level 3 (80-115) Antepartum Initial or Follow-up Antepartum Follow up Visit: Yes Assessment & Plan Diagnosis / Problem List (1) care following delivery: Status: Acute (2) Contraception management: Status: Acute Qualifiers: Contraceptive encounter type: initial prescription Contraceptive type: pill Qualified Code(s): Z30.011 - Encounter for initial prescription of contraceptive pills Care Reviewed delivery summary and any complications: Yes Uterus involuted to: normal Perineal / incision healing noted: Yes Screened for depression: Yes Discussed family planning & contraception: Yes Contraception planned: pills regular BCPills as not breast feeding Counseling on safe resumption of sexual activity: Yes Counseling on gradual excercise: Yes Discussed and concerns (describe), provided support: Yes Counseled on good nutrition, hydration, and self care: Yes Reviewed vaccine status: Yes Chronic & current problems reconciled on problem list: Yes Follow up: routine/prn Additional counseling & anticipatory guidance provided: follow up at [facility] with primary care / called in BCPills x 3 months / Has no contraindications and counselled on use
== END 2025-03-20 11:17 | disposition home or self-care (01) ==
LOC: HODSOBC 10:05
PROVIDERS: Supervising Provider Obstetrics & Gynecology; Visit Provider Obstetrics & Gynecology
DX: Z39.2 Encounter for routine postpartum follow-up (principal); Z30.011 Encounter for initial prescription of contraceptive pills; Z39.1 Encounter for care and examination of lactating mother
CPT/HCPCS: 99213; Z1034; G0463